=== PATIENT | male | born 1940 | race Caucasian/White ===

== ENCOUNTER → 2016-07-13 | Outpatient (CLI) | payer OTHER ==
[~2016-07-13] MED LIST: ALL300 PO; LISI-461 PO
[2016-07-13 12:31] LABS: CALCIUM 9.3 mg/dl (8.5-10.1)
[2016-07-13 12:37] LABS: AST/SGOT 22 U/L (15-37); BLOOD UREA NITROGEN 17 mg/dl (7-18); BUN/CREATININE RATIO 17.6 (10-20); CARBON DIOXIDE 28 mmol/L (21-32); CHLORIDE 105 mmol/L (98-107); CHOLESTEROL 213 mg/dl (0-200); CREATININE 0.99 mg/dl (0.60-1.40); GLUCOSE 121 mg/dl (70-99); POTASSIUM 4.6 mmol/L (3.5-5.1); SODIUM 139 mmol/L (136-145)
[2016-07-13 12:40] LABS: ALT/SGPT 40 U/L (12-78); CHOLESTEROL/HDL RATIO 5.3; HDL CHOLESTEROL 40 mg/dl; LDL CHOLESTEROL CALCULATED 136 mg/dl; TRIGLYCERIDES 184 mg/dl (0-150); VERY LOW DENSITY LIPOPROT CALC 37 mg/dl
== END | disposition home or self-care (01) ==
LOC: C.LABPVFM 08:24
PROVIDERS: ATTEND Family Medicine
DX: I10 Essential (primary) hypertension (principal); E78.5 Hyperlipidemia, unspecified

== ENCOUNTER → 2017-01-21 | Outpatient (CLI) | payer OTHER ==
[2017-01-21 13:20] LABS: BLOOD UREA NITROGEN 20 mg/dl (7-18); BUN/CREATININE RATIO 19.5 (10-20); CALCIUM 8.7 mg/dl (8.5-10.1); CARBON DIOXIDE 23 mmol/L (21-32); CHLORIDE 109 mmol/L (98-107); CREATININE 1.02 mg/dl (0.60-1.40); GLUCOSE 102 mg/dl (70-99); POTASSIUM 4.2 mmol/L (3.5-5.1); SODIUM 141 mmol/L (136-145)
[2017-01-21 13:38] LABS: ESTIMATED AVERAGE GLUCOSE 111 mg/dl; HA1C FLAG Normal (Normal)
== END | disposition home or self-care (01) ==
LOC: C.LABPVFM 07:31
PROVIDERS: ATTEND Family Medicine
DX: R79.9 Abnormal finding of blood chemistry, unspecified (principal); R73.09 Other abnormal glucose

== ENCOUNTER → 2017-11-01 | Outpatient (CLI) | payer OTHER ==
[~2017-11-01] MED LIST changes: -ALL300 PO; +ALLO300T2 PO; +BILB1CAP2 PO; +CRANPOW PO; +ESTER C PO; +IBUP-103 PO; +LUTE15CA PO; +MULT-506 PO; +OMEG10007 PO; +TIMOLOL OPB; +VITAMIN E PO
--- NOTE | 2017-11-01 12:43 | DIAGNOSTIC IMAGING REPORT ---
CHEST 2 VIEWS ROUTINE CLINICAL HISTORY: 77 years-old Male presenting with preoperative assessment. TECHNIQUE: PA and lateral views of the chest were obtained. COMPARISON: None. FINDINGS: Cardiomediastinal silhouette normal. Lungs and pleural spaces clear. Osseous structures normal. Upper abdomen normal. IMPRESSION: 1. No acute cardiopulmonary disease. Electronically signed by: Bandar Arrieta M.D. 11/01/2017 12:41 PM Dictated Date/Time: 11/01/2017 12:40 PM
--- NOTE | 2017-11-01 14:41 | HISTORY & PHYSICAL EXAMINATION ---
DATE OF ADMISSION: 11/01/2017 DATE OF SURGERY: 11/27/2017. PROCEDURE: Right total knee replacement. HISTORY OF PRESENT ILLNESS: Mehran is a pleasant 77-year-old male who presents today for preoperative evaluation prior to right knee replacement. Mehran has been having pain in his knee for many years now, which has gradually worsened, it is now affecting his daily activities including walking, standing, going up and down steps. He has tried previous oral anti-inflammatories, cortisone injection, viscosupplementation with no relief. At this point in time, he has failed conservative measures. Pain is now affecting his daily activities, would like to proceed with a right knee replacement. PAST MEDICAL HISTORY: 1. Hypertension. 2. Denies high cholesterol, diabetes. ALLERGIES: No known drug allergies. CURRENT MEDICATIONS: 1. Cranberry 420 mg daily. 2. Lisinopril 10 mg 3 tablets daily. 3. Allopurinol 300 mg 1 tablet daily. 4. Multivitamin. 5. Flaxseed oil. 6. Fish oil. 7. Vitamin D. 8. Vitamin E. PAST SURGICAL HISTORY: 1. Tonsillectomy. 2. Appendectomy. 3. Right arm ORIF x2 from an accident in 1995. FAMILY HISTORY: Noncontributory. SOCIAL HISTORY: He denies a history of smoking or tobacco use. No alcohol consumption. REVIEW OF SYSTEMS: Otherwise negative. Please see HPI for pertinent positives. PHYSICAL EXAMINATION: VITAL SIGNS: 5 feet 11 inches, 243 pounds. O2 sats 97% room air. Pulse 64. Blood pressure is 140/88. GENERAL: Well-developed, well-nourished 77-year-old male, in no acute distress, alert and oriented x3. HEENT: Normocephalic, atraumatic. CARDIAC: Regular rate and rhythm. No murmurs or gallops appreciated. Resting pulse 64 beats per minute. LUNGS: Clear to auscultation without rales or wheeze bilaterally. ABDOMEN: Soft, nontender. Bowel sounds present. EXTREMITIES: Right lower extremity is neurovascularly intact. Calves are soft and nontender. DP pulse +2. Demonstrates good quad tone. Straight leg raise without lag. No erythema or warmth. Has mild effusion. Positive crepitation with motion. Range of motion is 0/3/110. Knee is stable with valgus and varus stress. Calf is soft, nontender. IMAGING DATA: Reviewed of the right knee show findings consistent with degenerative joint disease including joint space narrowing, subchondral sclerosis, peripheral osteophytes noted. He has varus alignment. IMPRESSION: 1. Right knee degenerative joint disease. 2. Hypertension. PLAN: Further care discussed with Mehran. At this point in time, has failed conservative measures and would like to proceed with a right knee replacement at [facility] on 11/27/2017. Will place on aspirin 81 mg p.o. b.i.d. for a month postop. Would like to be discharged home with outpatient physical therapy.
[2017-11-01 14:43] LABS: BASO % 0.2 %; BASO ABS # 0.01 K/uL (0-0.2); HEMATOCRIT 42.8 % (42-52); HEMOGLOBIN 14.9 g/dL (14.0-18.0); IG# 0.02 K/uL (0.00-0.02); LYMPH % 34.4 %; LYMPH ABS # 2.29 K/uL (1.2-3.4); MEAN CELL VOLUME 93.9 fL (80-100); MEAN CORPUSCULAR HEMOGLOBIN 32.7 pg (25-34); MEAN CORPUSCULAR HGB CONC 34.8 g/dl (32-36); MEAN PLATELET VOLUME 10.3 fL (7.4-10.4); MONO % 6.5 %; MONO ABS # 0.43 K/uL (0.11-0.59); NEUT % 55.6 %; PLATELET COUNT 122 K/uL (130-400); RED CELL DISTRIBUTION WIDTH CV 13.2 % (11.5-14.5); RED CELL DISTRIBUTION WIDTH SD 45.3 fL (36.4-46.3); WHITE BLOOD COUNT 6.65 K/uL (4.8-10.8)
[2017-11-01 14:52] LABS: PTT PATIENT 26.6 SECONDS (21.0-31.0)
[2017-11-01 14:56] LABS: ALBUMIN 3.7 gm/dl (3.4-5.0); BLOOD UREA NITROGEN 17 mg/dl (7-18); CALCIUM 8.4 mg/dl (8.5-10.1); CARBON DIOXIDE 22 mmol/L (21-32); CREATININE 0.86 mg/dl (0.60-1.40); GLUCOSE 99 mg/dl (70-99); POTASSIUM 4.1 mmol/L (3.5-5.1); SODIUM 142 mmol/L (136-145)
[2017-11-02 06:48] LABS: HEMOGLOBIN A1C 5.8 % (4.5-5.6)
== END | disposition home or self-care (01) ==
LOC: C.CPL 13:06
PROVIDERS: ATTEND Orthopaedic Surgery
DX: Z01.810 Encounter for preprocedural cardiovascular examination (principal); Z01.811 Encounter for preprocedural respiratory examination; Z01.812 Encounter for preprocedural laboratory examination; R00.1 Bradycardia, unspecified

== ENCOUNTER 2024-05-01 19:14 | Inpatient (IN) ==
[2024-05-01] MEDS: OPTIRAY 320 125ml IV ONE (19:39)
[2024-05-01] MEDS ORDERED: No Aspirin within 24hrs of THROMBOLYTIC-Stroke PO SCH (19:45)
[2024-05-01 19:49] LABS: iSTAT Creatinine 1.2 mg/dl (0.6-1.3); iSTAT Ionized Calcium 1.14 mmol/l (1.12-1.32)
[2024-05-01 19:54] LABS: Basophils # (auto) 0.03 K/uL (0.00-0.20); Basophils % (auto) 0.4 %; Eosinophils # (auto) 0.28 K/uL (0.00-0.50); Eosinophils % (auto) 3.5 %; Hematocrit (blood only) 43.6 % (42.0-52.0); Immature Granulocytes # (auto) 0.02 K/uL (0.01-0.20); Immature Granulocytes % (auto) 0.2 %; Lymphocytes # (auto) 3.12 K/uL (1.20-3.40); Lymphocytes % (auto) 38.8 %; Mean Corpuscular Hemoglobin 31.4 pg (25.0-34.0); Mean Corpuscular Hgb Conc 34.4 g/dL (32.0-36.0); Mean Corpuscular Volume 91.2 fL (80.0-100.0); Mean Platelet Volume 9.6 fL (9.4-12.4); Monocytes # (auto) 0.74 K/uL (0.11-0.59); Monocytes % (auto) 9.2 %; Neutrophils # (auto) 3.86 K/uL (1.40-6.50); Neutrophils % (auto) 47.9 %; Platelet Count 145 K/uL (130-400); RDW Coefficient of Variation 13.1 % (11.5-14.5); RDW Standard Deviation 43.7 fL (36.4-46.3); Red Blood Count 4.78 M/uL (4.70-6.10); White Blood Count 8.05 K/ul (4.8-10.8)
[2024-05-01] MEDS: STAT IV/IM STA (19:54)
[2024-05-01] MEDS: TENECTEPLASE 25 MG in SYRINGE 0 ML IV ONE (19:56)
--- NOTE | 2024-05-01 19:57 | CT Scan Report ---
EXAMINATION: Head CT without CLINICAL HISTORY: Numbness, decreased control of left arm, trouble walking, fall 2 weeks ago PRIORS: [address] TECHNIQUE: Contiguous axial images were obtained through the head without the use of intravenous contrast. Sagittal and coronal reformations are supplied. FINDINGS: Appropriate parenchymal volume is noted. Trevizo-white differentiation is preserved. No edema or midline shift. Partial calcification of the falx. No intra-axial or extra-axial hemorrhage. Ventricles are normal in size and configuration. Brainstem and cerebellum have a normal appearance. Calvarium unremarkable. Paranasal sinuses and mastoid air cells are well-pneumatized. Globes are intact. No retrobulbar abnormality. IMPRESSION: No CT evidence of an acute intracranial abnormality. Electronically signed by Haylee Garay 05-01-2024 7:56 PM
[2024-05-01] MEDS: SODIUM CHLORIDE 0.9% 10ML FLUSH IV STA (19:58)
[2024-05-01 20:03] LABS: Albumin Globulin Ratio 1.5 (0.9-2); Albumin Level 4.3 gm/dl (3.4-5.0); Bilirubin,Total 0.5 mg/dl (0.2-1.0); Calcium 8.8 mg/dl (8.6-10.3); Creatinine Clr Calc Pharmacy 60.6 ml/min; Globulin 2.9 gm/dl (2.5-4.0); Potassium 4.1 mmol/L (3.5-5.1); Total Protein 7.2 gm/dl (6.0-8.3)
--- NOTE | 2024-05-01 20:05 | CT Scan Report ---
EXAM: CTA head with CLINICAL HISTORY: Numbness, decreased control left arm, fall TECHNIQUE: Contiguous CTA axial images were obtained through the head after the administration of intravenous contrast. Sagittal and coronal reformations are supplied. PRIORS: None FINDINGS: Dental amalgam creates significant beam hardening artifact. The vertebral arteries form the basilar artery at the skull base. [place] is patent. No thrombus or hemodynamically significant stenosis. No aneurysmal dilatation or bravo aneurysm. Mild atherosclerotic disease present in the No enhancing mass in the brain. Mild bilateral maxillary sinus mucosal thickening. IMPRESSION: No CTA evidence of an acute vascular abnormality. Electronically signed by Haylee Garay 05-01-2024 8:05 PM
--- NOTE | 2024-05-01 20:05 | CT Scan Report ---
EXAM: CT angio neck with con CLINICAL HISTORY: Numbness, decreased control left arm, fell 2 weeks ago TECHNIQUE: Contiguous CTA axial images were obtained through the neck with the administration of intravenous contrast. Sagittal and coronal reformations are supplied. MIPS are supplied. COMPARISON: None FINDINGS: A left-sided aortic arch is present. The right subclavian artery originates from the undersurface of the aortic arch, variant anatomy. Right: Moderate atherosclerotic disease present in the proximal internal carotid artery with approximately 50% stenosis. Carotid bulb unremarkable. The right internal carotid artery is normal in course and enters the petrous portion of the skull base normally. Left: Moderate atherosclerotic disease is present in the proximal internal carotid artery of 50% stenosis. The carotid bulb is unremarkable. The left internal carotid artery enters the petrous portion of the skull base normally. Vertebral arteries are patent. Left vertebral artery is dominant. Both vertebral arteries contribute to the basilar artery. IMPRESSION: Bilateral proximal internal carotid artery atherosclerosis with approximately 50% stenosis and no acute abnormality. Electronically signed by Haylee Garay 05-01-2024 8:05 PM
[2024-05-01 20:08] LABS: Troponin I High Sensitivity 4.1 pg/ml (0-20)
[2024-05-01 20:17] LABS: Partial Thromboplastin Time 28 Seconds (21-31); Prothrombin Time 10.6 Seconds (9.0-12.0)
--- NOTE | 2024-05-01 20:55 | History & Physical Report ---
Date of Service May 01, 2024 Assessment & Plan (1) Acute CVA (cerebrovascular accident): Plan: 84yo right handed male with history of HTN on Lisinopril presenting with acute onset of LUE numbness and weakness that started at 18:30. Patient presented as a CODE STROKE. Initial NIHSS=3 with limb ataxia present in LUE. He was administered Tenecteplase 25mg IV at 19:56. Has had continued improvement in his symptoms. MS in LUE 4/5 on my exam. Most recent neurologic exam reports 5/5 strength in LUE. -Admit to MICU for post TNK management and monitoring -MRI brain complete -Repeat CT brain in 24 hours -Check 2D echo -Check HgbA1C and Lipid panel -Labetalol PRN BP > 180/105 -PT/OT evaluations appreciated -Neuro consultation appreciated Plan HTN -Continue Lisinopril BPH -Continue Flomax History of Present Illness Chief Complaint: left arm numbness Primary Care Provider: Hafsa Hoffman MD Mehran Pierson is an 84yo right-hand dominant male with history of HTN presenting with LUE numbness/weakness. Patient had been in his usual state of health until this afternoon while he was siting and relaxing and developed acute onset LUE numbness/tingling and weakness at 18:30. 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 No additional complaints. Specifically denies numbness/tingling of LLE, face, visual changes or speech issue. No report of fever, chills, chest pain, cough or shortness of breath. Patient presented as a CODE STROKE. He was administered Tenectplase 25mg at 19:56. He reports progressive improvement in his LUE numbness and weakness. Still not at baseline but improving. No additional complaints - no headache, visual changes. ER Course: Tenectplase 25mg IV Allergies Allergy/AdvReac Type Severity Reaction Status Date / Time Penicillins Allergy Mild HIVES, RASH Verified 04/10/24 08:27 ciprofloxacin AdvReac BLLE Verified 04/10/24 08:27 edema, pain and tingling Home Medications Medication Instructions Recorded Confirmed Type ascorbic acid (vitamin C) 1,000 mg 1 tab PO QAM ##0 10/28/17 04/10/24 History tablet (Vitamin C) vitamin E 268 mg (400 unit) capsule 1 dose PO QAM ##0 10/28/17 04/10/24 History multivitamin 1 tab PO QAM 09/04/18 04/10/24 History latanoprostene bunod 0.024 % eye 1 drp ophthalmic (eye) DAILY 02/13/21 04/10/24 History drops (Vyzulta) netarsudil 0.02 % eye drops 1 drp ophthalmic (eye) QPM 11/12/22 04/10/24 History (Rhopressa) oxybutynin chloride 5 mg tablet 5 mg PO Q8H PRN bladder spasms #30 05/31/23 04/10/24 Rx tabs tamsulosin 0.4 mg capsule 0.4 mg PO DAILY #90 caps 07/17/23 04/10/24 Rx lisinopril 10 mg tablet 10 mg PO QAM #90 tabs 03/09/24 04/10/24 Rx Past Med/Surg History Problem List Stroke-like symptoms Acute CVA (cerebrovascular accident) (Acute) Flu-like symptoms Fall Mass of right axilla Breast lump on right side at 9 o'clock position Urinary urgency Dysuria Encounter for pre-operative examination Total knee replacement status Abnormal glucose (Chronic) Abnormal blood chemistry (Acute) Hyperlipidemia (Chronic) Glaucoma (Chronic) Gout (Chronic) Routine health maintenance (Chronic) Murmur, cardiac (Chronic) Pre-syncope Fatigue Weight loss Hoarse voice quality First degree atrioventricular block by electrocardiogram Abnormal electrocardiogram Hematuria Bladder cancer Actinic keratosis (Acute) Benign essential hypertension (Chronic) BPH (benign prostatic hyperplasia) (Acute) HTN (hypertension) (Chronic) Medical History Bladder cancer recently dx History of nephrolithiasis Skin cancer Glaucoma Gout hx Osteoarthritis 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 hx Surgical History History of cystoscopy Transurethral Resection of Bladder Tumor 02/21/21 [place] History of knee replacement History of arthroscopy of knee History of eye surgery Status post re-excision of malignant skin lesion History of anesthesia reaction WOKE UP DURING ORIF #1 AND SLOW TO WAKE ORIF #2 History of open reduction and internal fixation (ORIF) procedure R ARM X 2 Hx of appendectomy Hx of colonoscopy Hx of tonsillectomy Family History Other No pertinent family history Denies family history of Ovarian cancer Prostate cancer Myocardial infarction Breast cancer Colorectal cancer Social History Smoking Status: Never smoker Second Hand Exposure: No; Do You Dip or Chew Tobacco: No; Hx Alcohol Use: Yes Alcohol type: beer Hx Substance Use: No Preferred Language: Yoruba Communication Ability: Effective Visual Impairment: No Limitations Hearing Ability: Normal Real Estate Sales Supervisor Required: No Beliefs That Will Affect Care: None marital status: Current Living Situation: Spouse current occupational status: retired How many Children do You have: 1 How many Children do You have Comment: SON Feels Safe at Home: Yes Safety Concerns: Feels Safe At This Time Childhood Exposure to Second-Hand Smoke: Yes Diet: regular caffeine: Yes during the past year weight has: remained stable Dental Care, Regularly: Yes Physical Activity Frequency: 5-6 Times per Week Seatbelt Use: always Sunscreen Use: Yes Assistive Devices: Glasses Assistive Devices Comment: reading glasses, partial plate Review of Systems Review of Systems: All systems reviewed & are unremarkable except as noted in HPI & below Physical Exam Physical Exam: General: patient resting comfortably, NAD, non-toxic in appearance, AA&O x 4 Skin: warm, dry, intact, no rashes or lesions HEENT: NC/AT, PERRL, EOMI, anicteric sclera, conjunctiva without injection, external ear normal to inspection and nontender, nares patent, moist mucus membranes, dentition intact, no oropharyngeal lesions, neck supple, trachea midline, no LAD, no thyromegaly, no JVD Heart: +S1/S2, regular, no m/r/g Lungs: equal air entry bilaterally, no rales/rhonchi/wheezes Abd: +BS, soft, NT/ND, no masses/organomegaly/ascites Ext: warm, 2+ pulses in UE/LE bilaterally, no clubbing/cyanosis or edema Neuro: AA&O x 4, speech appropriate and fluent, no facial droop, CN II - XII grossly intact, sensation to light touch intact in UE/LE bilaterally, MS in LUE 4/5, RUE, RLL/LLL 5/5, mild dysmetria noted with finger to nose when using left hand, gait not assessed Results & Data Results & Data Vital Signs (Past 12 Hours) Vital Signs Temp Pulse Pulse Resp BP BP Pulse Ox 05/01/24 20:42 36.8 C 61 18 134/83 96 05/01/24 20:26 36.8 C 59 L 16 130/78 96 05/01/24 20:11 36.8 C 62 25 H 127/79 95 05/01/24 19:30 67 15 159/90 H 96 05/01/24 19:29 72 05/01/24 19:17 36.4 C L 72 20 148/83 H 96 O2 Del Method 05/01/24 20:42 Room Air 05/01/24 20:26 Room Air 05/01/24 20:11 Room Air 05/01/24 19:30 Room Air 05/01/24 19:29 05/01/24 19:17 Room Air Laboratory Results Laboratory Results WBC 8.05 K/ul (4.8-10.8) 05/01/24 19:31 RBC 4.78 M/uL (4.70-6.10) 05/01/24 19:31 Hgb 15.0 g/dl (14.0-18.0) 05/01/24 19:31 POC Hgb 15.0 g/dl (14.0-18.0) 05/01/24 19:38 Hct 43.6 % (42.0-52.0) 05/01/24 19: POC Hct 44 % (42-52) 05/01/24 19:38 MCV 91.2 fL (80.0-100.0) 05/01/24 19: MCH 31.4 pg (25.0-34.0) 05/01/24 19: MCHC 34.4 g/dL (32.0-36.0) 05/01/24 19:31 RDW Std Deviation 43.7 fL (36.4-46.3) 05/01/24 19: RDW Coeff of Oskar 13.1 % (11.5-14.5) 05/01/24 19: Plt Count 145 K/uL (130-400) 05/01/24 19: MPV 9.6 fL (9.4-12.4) 05/01/24: Immature Gran % (Auto) 0.2 % 05/01/24 19: Neut % (Auto) 47.9 % 05/01/24: Lymph % (Auto) 38.8 % 05/01/24: [place] % (Auto) 9.2 % 05/01/24: Eos % (Auto) 3.5 % 05/01/24: Baso % (Auto) 0.4 % 05/01/24: Neut # (Auto) 3.86 K/uL (1.40-6.50) 05/01/24: Lymph # (Auto) 3.12 K/uL (1.20-3.40) 05/01/24: [place] # (Auto) 0.74 K/uL (0.11-0.59) H 05/01/24: Eos # (Auto) 0.28 K/uL (0.00-0.50) 05/01/24: Baso # (Auto) 0.03 K/uL (0.00-0.20) 05/01/24: Immature Gran # (Auto) 0.02 K/uL (0.01-0.20) 05/01/24: PT 10.6 Seconds (9.0-12.0) 05/01/24: INR 1.0 (0.9-1.1) 05/01/24: APTT 28 Seconds (21-31) 05/01/24: PTT Ratio 1.0 05/01/24: POC Sodium 144 mmol/L (135-144) 05/01/24 19: Sodium 143 mmol/L (136-145) 05/01/24: POC Potassium 4.0 mmol/L (3.3-5.0) 05/01/24 19: Potassium 4.1 mmol/L (3.5-5.1) 05/01/24 19: POC Chloride 109 mmol/L (101-112) 05/01/24 19: Chloride 110 mmol/L (98-107) H 05/01/24 19:31 Carbon Dioxide 24 mmol/L (21-32) 05/01/24 19:31 POC Total CO2 22 mmol/L (24-31) L 05/01/24 19:38 Anion Gap 9 (3-11) 05/01/24 19:31 POC Anion Gap 18.0 mmol/L (16-25) 05/01/24 19:38 POC BUN 20 mg/dl (7-18) H 05/01/24 19:38 BUN 20 mg/dl (6-23) 05/01/24 19:31 Creatinine 1.11 mg/dl (0.6-1.4) 05/01/24 19:31 POC Creatinine 1.2 mg/dl (0.6-1.3) 05/01/24 19:38 Est Cr Clr Drug Dosing 60.6 ml/min 05/01/24 19:31 eGFR 65.07 05/01/24 19:31 BUN/Creatinine Ratio 18.0 (10-20) 05/01/24 19:31 Glucose 109 mg/dl (70-99(Fasting)) H 05/01/24 19:31 POC Glucose (other) 112 mg/dl (70-99) H 05/01/24 19:38 Calcium 8.8 mg/dl (8.6-10.3) 05/01/24 19:31 POC Ioniz Calcium [place] 1.14 mmol/l (1.12-1.32) 05/01/24 19:38 Magnesium 2.0 mg/dl (1.7-2.4) 05/01/24 19:31 Total Bilirubin 0.5 mg/dl (0.2-1.0) 05/01/24 19:31 AST 17 U/L (13-39) 05/01/24 19:31 ALT 19 U/L (7-52) 05/01/24 19:31 Alkaline Phosphatase 99 U/L (34-104) 05/01/24 19:31 Troponin I High Sens 4.1 pg/ml (0-20) 05/01/24 19:31 Total Protein 7.2 gm/dl (6.0-8.3) 05/01/24 19:31 Albumin 4.3 gm/dl (3.4-5.0) 05/01/24 19:31 Globulin 2.9 gm/dl (2.5-4.0) 05/01/24 19:31 Albumin/Globulin Ratio 1.5 (0.9-2) 05/01/24 19:31 Nasal Screen MRSA (PCR) Negative (Negative) 05/01/24 Unknown Blood Type B Positive 05/01/24 19:31 Antibody Screen NEGATIVE 05/01/24 19:31 Impressions Chest X-Ray 05/01/24 19:25 Exam(s): XR CXR 1 VIEW EXAM: XR Chest, 1 View CLINICAL HISTORY: Reason for exam: neuro deficit, acute stroke suspected. TECHNIQUE: Frontal view of the chest. COMPARISON: 02/10/2021 FINDINGS: Lungs: No consolidation. No overt edema. Pleural space: No pleural effusion. No pneumothorax. Heart: Unremarkable. No cardiomegaly. IMPRESSION: No acute cardiopulmonary abnormality. Electronically signed by: Jhony Martino MD 05/01/24 23:[address] 05/01/24 19:25 EXAMINATION: Head CT without CLINICAL HISTORY: Numbness, decreased control of left arm, trouble walking, fall 2 weeks ago PRIORS: [address] TECHNIQUE: Contiguous axial images were obtained through the head without the use of intravenous contrast. Sagittal and coronal reformations are supplied. FINDINGS: Appropriate parenchymal volume is noted. [place]-white differentiation is preserved. No edema or midline shift. Partial calcification of the falx. No intra-axial or extra-axial hemorrhage. Ventricles are normal in size and configuration. Brainstem and cerebellum have a normal appearance. Calvarium unremarkable. Paranasal sinuses and mastoid air cells are well-pneumatized. Globes are intact. No retrobulbar abnormality. IMPRESSION: No CT evidence of an acute intracranial abnormality. Electronically signed by Haylee Garay 05-01-2024 7:56 PM Head CTA 05/01/24 19:25 EXAM: CTA head with CLINICAL HISTORY: Numbness, decreased control left arm, fall TECHNIQUE: Contiguous CTA axial images were obtained through the head after the administration of intravenous contrast. Sagittal and coronal reformations are supplied. PRIORS: None FINDINGS: Dental amalgam creates significant beam hardening artifact. The vertebral arteries form the basilar artery at the skull base. [place] is patent. No thrombus or hemodynamically significant stenosis. No aneurysmal dilatation or bravo aneurysm. Mild atherosclerotic disease present in the No enhancing mass in the brain. Mild bilateral maxillary sinus mucosal thickening. IMPRESSION: No CTA evidence of an acute vascular abnormality. Electronically signed by Haylee Garay 05-01-2024 8:05 PM Neck CTA 05/01/24 19:25 EXAM: CT angio neck with con CLINICAL HISTORY: Numbness, decreased control left arm, fell 2 weeks ago TECHNIQUE: Contiguous CTA axial images were obtained through the neck with the administration of intravenous contrast. Sagittal and coronal reformations are supplied. MIPS are supplied. COMPARISON: None FINDINGS: A left-sided aortic arch is present. The right subclavian artery originates from the undersurface of the aortic arch, variant anatomy. Right: Moderate atherosclerotic disease present in the proximal internal carotid artery with approximately 50% stenosis. Carotid bulb unremarkable. The right internal carotid artery is normal in course and enters the petrous portion of the skull base normally. Left: Moderate atherosclerotic disease is present in the proximal internal carotid artery of 50% stenosis. The carotid bulb is unremarkable. The left internal carotid artery enters the petrous portion of the skull base normally. Vertebral arteries are patent. Left vertebral artery is dominant. Both vertebral arteries contribute to the basilar artery. IMPRESSION: Bilateral proximal internal carotid artery atherosclerosis with approximately 50% stenosis and no acute abnormality. Electronically signed by Haylee Garay 05-01-2024 8:05 PM Brain MRI 05/01/24 21:05 Exam(s): MRI HEAD Without Contrast EXAM: MR Head Without Intravenous Contrast CLINICAL HISTORY: Reason for exam: Stroke-like symptoms s/p TNK. TECHNIQUE: Magnetic resonance images of the head/brain without intravenous contrast in multiple planes. COMPARISON: No relevant prior studies available. FINDINGS: Brain: Small amount of restricted diffusion along the cortex of the posterior right frontal lobe. No mass-effect. No hemorrhage. Global parenchymal atrophy. Ventricles: Unremarkable. No ventriculomegaly. Bones/joints: Unremarkable. No acute fracture. Sinuses: Fluid in the right maxillary sinus. Left maxillary sinus mucosal thickening. Mastoid air cells: Unremarkable as visualized. No mastoid effusion. Orbits: Unremarkable as visualized. IMPRESSION: Small amount of restricted diffusion along the cortex of the posterior right frontal lobe consistent with acute infarct.. Electronically signed by: Jhony Martino MD 05/01/24 23:53 PM ECG Additional Comments: EKG per my interpretation with SR at 61bpm, left axis, XQ=851, QRS=94, JSr=398, no acute ischemic changes Code Status & VTE Plan VTE Prophylaxis Plan VTE Prophylaxis will be ordered: Yes PG Care Time/CCT Total # of Minutes Spent Total Time Spent with Patient: Total time spent is greater than 50% in coordination of care (as documented) at patient's floor/unit and/or counseling patient: Coding Level of Care Code 38554 INT INP/OBS CARE 3/75MIN Diagnoses Acute CVA (cerebrovascular accident) I63.9
[2024-05-01] MEDS ORDERED: GLUCOSE 10 TAB/TUBE PO PRN (21:02)
[2024-05-01] MEDS ORDERED: CARBOHYDRATES FOR HYPOGLYCEMIA PO PRN (21:02)
[2024-05-01] MEDS ORDERED: GLUCOSE 40% GEL 15 GM TUBE PO PRN (21:02)
[2024-05-01] MEDS ORDERED: DEXTROSE 50% 50 ML SYRINGE IV PRN (21:02)
[2024-05-01] MEDS ORDERED: GLUCAGON FOR INJ 1 MG VIAL SQ PRN (21:02)
--- NOTE | 2024-05-01 21:04 | Emergency Department Note ---
History of Present Illness General Chief complaint: Stroke Alert Stated complaint: LT ARM NUMB, DIZZY Time Seen by Provider: 05/01/24 19:24 History of Present Illness Provider complaint: Left arm weakness Onset (ago): hour(s) 1 84-year-old male presents emergency department for left arm weakness. Patient states 1 hour ago he was watching TV and then noticed he could not move his left arm properly. No falls or traumas. No blood thinners. No headache. Patient [place] any history of cerebral tumors or intracerebral hemorrhage. No GI bleeding. Home Medications Medication Instructions Recorded Confirmed Type ascorbic acid (vitamin C) 1,000 mg 1 tab PO QAM ##0 10/28/17 04/10/24 History tablet (Vitamin C) vitamin E 268 mg (400 unit) capsule 1 dose PO QAM ##0 10/28/17 04/10/24 History multivitamin 1 tab PO QAM 09/04/18 04/10/24 History latanoprostene bunod 0.024 % eye 1 drp ophthalmic (eye) DAILY 02/13/21 04/10/24 History drops (Vyzulta) netarsudil 0.02 % eye drops 1 drp ophthalmic (eye) QPM 11/12/22 04/10/24 History (Rhopressa) oxybutynin chloride 5 mg tablet 5 mg PO Q8H PRN bladder spasms #30 05/31/23 04/10/24 Rx tabs tamsulosin 0.4 mg capsule 0.4 mg PO DAILY #90 caps 07/17/23 04/10/24 Rx lisinopril 10 mg tablet 10 mg PO QAM #90 tabs 03/09/24 04/10/24 Rx Allergies Allergy/AdvReac Type Severity Reaction Status Date / Time Penicillins Allergy Mild HIVES, RASH Verified 04/10/24 08:27 ciprofloxacin AdvReac BLLE Verified 04/10/24 08:27 edema, pain and tingling Past Med/Surg History Problem List (Updated 05/01/24 @ 21:19 by Mario Ross MD) Acute CVA (cerebrovascular accident) (Acute) Flu-like symptoms Fall Mass of right axilla Breast lump on right side at 9 o'clock position Urinary urgency Dysuria Encounter for pre-operative examination Total knee replacement status Abnormal glucose (Chronic) Abnormal blood chemistry (Acute) Hyperlipidemia (Chronic) Glaucoma (Chronic) Gout (Chronic) Routine health maintenance (Chronic) Murmur, cardiac (Chronic) Pre-syncope Fatigue Weight loss Hoarse voice quality First degree atrioventricular block by electrocardiogram Abnormal electrocardiogram Hematuria Bladder cancer Actinic keratosis (Acute) Benign essential hypertension (Chronic) BPH (benign prostatic hyperplasia) (Acute) HTN (hypertension) (Chronic) Medical History Bladder cancer History of nephrolithiasis Skin cancer Glaucoma Gout Osteoarthritis 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 Surgical History History of cystoscopy History of knee replacement History of arthroscopy of knee History of eye surgery Status post re-excision of malignant skin lesion History of anesthesia reaction History of open reduction and internal fixation (ORIF) procedure Hx of appendectomy Hx of colonoscopy Hx of tonsillectomy Family History Other No pertinent family history Denies family history of Ovarian cancer Prostate cancer Myocardial infarction Breast cancer Colorectal cancer Social History Smoking Status: Never smoker Second Hand Exposure: No; Do You Dip or Chew Tobacco: No; Hx Alcohol Use: Yes Alcohol type: beer Hx Substance Use: No Preferred Language: Romanian Communication Ability: Effective Visual Impairment: No Limitations Hearing Ability: Normal Insurance Solicitor Required: No Beliefs That Will Affect Care: None marital status: Current Living Situation: Spouse current occupational status: retired How many Children do You have: 1 How many Children do You have Comment: SON Feels Safe at Home: Yes Safety Concerns: Feels Safe At This Time Childhood Exposure to Second-Hand Smoke: Yes Diet: regular caffeine: Yes during the past year weight has: remained stable Dental Care, Regularly: Yes Physical Activity Frequency: 5-6 Times per Week Seatbelt Use: always Sunscreen Use: Yes Assistive Devices: Glasses Assistive Devices Comment: reading glasses, partial plate Physical Exam Vital Signs Vital Signs - 24 hr 05/01/24 19:17 05/01/24 19:29 05/01/24 19:30 Temperature 36.4 C L Temperature Source Oral Pulse Rate 72 72 Pulse Rate [Apical] 67 Pulse Rhythm [Apical] Regular Pulse Strength [Apical] Normal Respiratory Rate 20 15 Respiratory Effort / Characteristics Non-Labored Non-Labored Respiratory Depth Normal Normal Respiratory Pattern Regular Blood Pressure 148/83 H Blood Pressure [Right Arm] 159/90 H Blood Pressure Mean 104 Blood Pressure Mean [Right Arm] 113 Blood Pressure Position [Right Arm] Pulse Oximetry 96 96 Oxygen Delivery Method Room Air Room Air Sepsis Recent Fever Within 48 Hours No Sepsis New/Unexplained Change in Mental Status Yes Sepsis Action Taken by Nursing No Action Required 05/01/24 20:11 05/01/24 20:26 05/01/24 20:42 Temperature 36.8 C 36.8 C 36.8 C Temperature Source Oral Oral Oral Pulse Rate Pulse Rate [Apical] 62 59 L 61 Pulse Rhythm [Apical] Pulse Strength [Apical] Respiratory Rate 25 H 16 18 Respiratory Effort / Characteristics Non-Labored Non-Labored Respiratory Depth Normal Normal Respiratory Pattern Blood Pressure Blood Pressure [Right Arm] 127/79 130/78 134/83 Blood Pressure Mean Blood Pressure Mean [Right Arm] 95 95 100 Blood Pressure Position [Right Arm] Lying Lying Lying Pulse Oximetry 95 96 96 Oxygen Delivery Method Room Air Room Air Room Air Sepsis Recent Fever Within 48 Hours Sepsis New/Unexplained Change in Mental Status Sepsis Action Taken by Nursing 05/01/24 20:59 Temperature 36.8 C Temperature Source Oral Pulse Rate Pulse Rate [Apical] 57 L Pulse Rhythm [Apical] Pulse Strength [Apical] Respiratory Rate 16 Respiratory Effort / Characteristics Respiratory Depth Normal Respiratory Pattern Blood Pressure Blood Pressure [Right Arm] 123/82 Blood Pressure Mean Blood Pressure Mean [Right Arm] 95 Blood Pressure Position [Right Arm] Pulse Oximetry 95 Oxygen Delivery Method Sepsis Recent Fever Within 48 Hours Sepsis New/Unexplained Change in Mental Status Sepsis Action Taken by Nursing Physical Exam HENT: Exam performed. - Head: Normocephalic and atraumatic. EYES: Conjunctivae and EOM are normal. Right eye exhibits no discharge. Left eye exhibits no discharge. No scleral icterus. NECK: Normal range of motion. Neck supple. No JVD present. CV: Normal rate, regular rhythm, normal heart sounds and intact distal pulses. There is no peripheral edema. Palpable radial pulses bue. PULM/CHEST: Effort normal and breath sounds normal. No respiratory distress. No stridor. no wheezes. no rales. NEURO: NIHSS 3 (4:1, 5a:1, 7:1) Course Course 1923: The patient was evaluated in room B1. A complete history and physical exam was performed Cardiac monitoring: An order was placed for continuous cardiac monitoring. The monitor shows a rate of 60 with sinus rhythm interpreted by 1937: CT of the head viewed by shows no ICH. 1955: Latasha telestroke neurologist on video conference. He reviewed the scans and agrees patient can receive TNK. TNK pushed. Patient will be admitted to the medicine service to the ICU. 2046: On reassessment patient has good strength bilateral upper and lower extremities. Facial droop resolved. NIH stroke scale improved to 1. Administered Medications Discontinued Medications Tenecteplase 25 mg/ Syringe 5 mls @ 60 mls/min IV NOW ONE; Protocol Stop: 05/01/24 19:56 Last Admin: 05/01/24 19:56 Dose: 60 mls/min Documented By: LIZZETH Co-signed By: IZABELA Ioversol (Optiray 320 125ml) 115 ml IV ONCE ONE Stop: 05/01/24 19:37 Last Admin: 05/01/24 19:39 Dose: 115 ml Documented By: JENIFER Miscellaneous (Stat Iv/Im) 1 each N/A NOW STA Stop: 05/01/24 19:46 Last Admin: 05/01/24 19:54 Dose: 1 each Documented By: LIZZETH Sodium Chloride (Sodium Chloride 0.9% 10ml Flush) 20 ml IV NOW STA Stop: 05/01/24 19:46 Last Admin: 05/01/24 19:58 Dose: 20 ml Documented By: LIZZETH Critical Care Time Critical Care Time: Yes Total Critical Care Time: 37 I have personally spent greater than 37 minutes of critical care time in the direct management of this patient. This includes bedside care, interpretation of diagnostic studies, and testing, discussion with consultants, patient, and family members, and other required patient management activities. This 37 minutes is in excess of all separately billable procedures. Medical Decision Making Laboratory Data Attestation: I reviewed the patient's lab results. 05/01/24 19:31 05/01/24 19:31 Lab Results 05/01/24 05/01/24 Range/Units 19:31 19:38 WBC 8.05 (4.8-10.8) K/ul RBC 4.78 (4.70-6.10) M/uL Hgb 15.0 (14.0-18.0) g/dl POC Hgb 15.0 (14.0-18.0) g/dl Hct 43.6 (42.0-52.0) % POC Hct 44 (42-52) % MCV 91.2 (80.0-100.0) fL MCH 31.4 (25.0-34.0) pg MCHC 34.4 (32.0-36.0) g/dL RDW Std Deviation 43.7 (36.4-46.3) fL RDW Coeff of Oskar 13.1 (11.5-14.5) % Plt Count 145 (130-400) K/uL MPV 9.6 (9.4-12.4) fL Immature Gran % (Auto) 0.2 % Neut % (Auto) 47.9 % Lymph % (Auto) 38.8 % Bonner % (Auto) 9.2 % Eos % (Auto) 3.5 % Baso % (Auto) 0.4 % Neut # (Auto) 3.86 (1.40-6.50) K/uL Lymph # (Auto) 3.12 (1.20-3.40) K/uL Bonner # (Auto) 0.74 H (0.11-0.59) K/uL Eos # (Auto) 0.28 (0.00-0.50) K/uL Baso # (Auto) 0.03 (0.00-0.20) K/uL Immature Gran # (Auto) 0.02 (0.01-0.20) K/uL PT 10.6 (9.0-12.0) Seconds INR 1.0 (0.9-1.1) APTT 28 (21-31) Seconds PTT Ratio 1.0 POC Sodium 144 (135-144) mmol/L Sodium 143 (136-145) mmol/L POC Potassium 4.0 (3.3-5.0) mmol/L Potassium 4.1 (3.5-5.1) mmol/L POC Chloride 109 (101-112) mmol/L Chloride 110 H (98-107) mmol/L Carbon Dioxide 24 (21-32) mmol/L POC Total CO2 22 L (24-31) mmol/L Anion Gap 9 (3-11) POC Anion Gap 18.0 (16-25) mmol/L POC BUN 20 H (7-18) mg/dl BUN 20 (6-23) mg/dl Creatinine 1.11 (0.6-1.4) mg/dl POC Creatinine 1.2 (0.6-1.3) mg/dl Est Cr Clr Drug Dosing 60.6 ml/min eGFR 65.07 BUN/Creatinine Ratio 18.0 (10-20) Glucose 109 H (70-99(Fasting)) mg/dl POC Glucose (other) 112 H (70-99) mg/dl Calcium 8.8 (8.6-10.3) mg/dl POC Ioniz Calcium Maddison 1.14 (1.12-1.32) mmol/l Magnesium 2.0 (1.7-2.4) mg/dl Total Bilirubin 0.5 (0.2-1.0) mg/dl AST 17 (13-39) U/L ALT 19 (7-52) U/L Alkaline Phosphatase 99 (34-104) U/L Troponin I High Sens 4.1 (0-20) pg/ml Total Protein 7.2 (6.0-8.3) gm/dl Albumin 4.3 (3.4-5.0) gm/dl Globulin 2.9 (2.5-4.0) gm/dl Albumin/Globulin Ratio 1.5 (0.9-2) Blood Type B Positive Antibody Screen NEGATIVE Imaging Data Attestation: I personally reviewed and interpreted this imaging study as follows: My Impression: CT of the head viewed by me shows no ICH. Chest x-ray: Chest x-ray negative. Airway clear. No pneumothorax. No consolidation. No cardiomegaly or cephalization.. No free air under the diaphragm. No fractures of the skeletal structures. Radiologist's Impression: Head CT 05/01/24 19:25 EXAMINATION: Head CT without CLINICAL HISTORY: Numbness, decreased control of left arm, trouble walking, fall 2 weeks ago PRIORS: [address] TECHNIQUE: Contiguous axial images were obtained through the head without the use of intravenous contrast. Sagittal and coronal reformations are supplied. FINDINGS: Appropriate parenchymal volume is noted. Trevizo-white differentiation is preserved. No edema or midline shift. Partial calcification of the falx. No intra-axial or extra-axial hemorrhage. Ventricles are normal in size and configuration. Brainstem and cerebellum have a normal appearance. Calvarium unremarkable. Paranasal sinuses and mastoid air cells are well-pneumatized. Globes are intact. No retrobulbar abnormality. IMPRESSION: No CT evidence of an acute intracranial abnormality. Electronically signed by Haylee Garay 05-01-2024 7:56 PM Head CTA 05/01/24 19:25 EXAM: CTA head with CLINICAL HISTORY: Numbness, decreased control left arm, fall TECHNIQUE: Contiguous CTA axial images were obtained through the head after the administration of intravenous contrast. Sagittal and coronal reformations are supplied. PRIORS: None FINDINGS: Dental amalgam creates significant beam hardening artifact. The vertebral arteries form the basilar artery at the skull base. [place] of [place] is patent. No thrombus or hemodynamically significant stenosis. No aneurysmal dilatation or bravo aneurysm. Mild atherosclerotic disease present in the No enhancing mass in the brain. Mild bilateral maxillary sinus mucosal thickening. IMPRESSION: No CTA evidence of an acute vascular abnormality. Electronically signed by Haylee Garay 05-01-2024 8:05 PM Neck CTA 05/01/24 19:25 EXAM: CT angio neck with con CLINICAL HISTORY: Numbness, decreased control left arm, fell 2 weeks ago TECHNIQUE: Contiguous CTA axial images were obtained through the neck with the administration of intravenous contrast. Sagittal and coronal reformations are supplied. MIPS are supplied. COMPARISON: None FINDINGS: A left-sided aortic arch is present. The right subclavian artery originates from the undersurface of the aortic arch, variant anatomy. Right: Moderate atherosclerotic disease present in the proximal internal carotid artery with approximately 50% stenosis. Carotid bulb unremarkable. The right internal carotid artery is normal in course and enters the petrous portion of the skull base normally. Left: Moderate atherosclerotic disease is present in the proximal internal carotid artery of 50% stenosis. The carotid bulb is unremarkable. The left internal carotid artery enters the petrous portion of the skull base normally. Vertebral arteries are patent. Left vertebral artery is dominant. Both vertebral arteries contribute to the basilar artery. IMPRESSION: Bilateral proximal internal carotid artery atherosclerosis with approximately 50% stenosis and no acute abnormality. Electronically signed by Haylee Garay 05-01-2024 8:05 PM ECG Data Attestation: I personally reviewed and interpreted this ECG as follows: Rate (beats per minute): 61 Rhythm: + normal sinus ECG Intervals/blocks: + First degree AV block, + Normal QRS and + Normal QT-c ECG ST segments: + Normal ST segments [facility] Narrative 1923: The patient was evaluated in room B1. A complete history and physical exam was performed Cardiac monitoring: An order was placed for continuous cardiac monitoring. The monitor shows a rate of 60 with sinus rhythm interpreted by me 1937: CT of the head viewed by me shows no ICH. 1955: Latasha telestroke neurologist on video conference. He reviewed the scans and agrees patient can receive TNK. TNK pushed. Patient will be admitted to the medicine service to the ICU. 2046: On reassessment patient has good strength bilateral upper and lower extremities. Facial droop resolved. NIH stroke scale improved to 1. Impression & Plan Acute CVA (cerebrovascular accident) Discharge Plan Visit Data Chief Complaint: Stroke Alert Stated Complaint: LT ARM NUMB, DIZZY ED Provider: Mario Ross Discharge Problem: Acute CVA (cerebrovascular accident) Patient Disposition: Admitted As Inpatient Discharge Instructions Interventions: ED Discharge Assessment Last Done: 05/01/24 21:01 Forms Stand Alone Forms: [facility] [place] JDCPhosphate Prescriptions Prescriptions: No Action vitamin E 400 unit Capsule 1 dose PO QAM Qty: 0 Rx Instructions: UNKNOWN DOSE ascorbic acid (vitamin C) [Vitamin C] 1,000 mg Tablet 1 tab PO QAM Qty: 0 oxybutynin chloride 5 mg tablet 5 mg PO Q8H PRN (Reason: bladder spasms) Qty: 30 0RF lisinopril 10 mg tablet 10 mg PO QAM Qty: 90 1RF Rx Instructions: TAKE 1 TABLET BY MOUTH ONCE DAILY. multivitamin tablet 1 tab PO QAM Rhopressa 0.02 % drops 1 drp ophthalmic (eye) QPM tamsulosin 0.4 mg capsule 0.4 mg PO DAILY Qty: 90 3RF Vyzulta 0.024 % Drops 1 drp OPHTHALMIC (EYE) DAILY Referrals Referrals: Hafsa Hoffman MD [Primary Care Provider] -
[2024-05-01] MEDS ORDERED: PHARMACIST DISCHARGE MED REC CONSULT PRN ×2 (21:05→21:22)
[2024-05-01] MEDS ORDERED: LABETALOL HCL IV 5 MG/ML 20ML IV PRN (21:22)
[2024-05-01] MEDS ORDERED: No Aspirin within 24hrs of THROMBOLYTIC-Stroke SCH (21:30)
[2024-05-01] MEDS: ICU Protocol for HYPERglycemia SCH (21:42)
--- NOTE | 2024-05-01 21:54 | Critical Care Consultation ---
Date of Consultation May 01, 2024 Assessment & Plan (1) Stroke-like symptoms: (2) Acute CVA (cerebrovascular accident): Plan Reason Critically Ill: CVA Neuro - [facility] ICU: Negative RASS GOAL 0 CTA shows moderate carotid stenosis, no LVO Q1H neurologic checks per protocol Symptoms resolved s/p TNK MRI pending Repeat CTH at 24 hours post-TNK or sooner if neurologic change Lipid panel, A1c pending BP < 180/105, Hydralazine PRN. Avoid BB Cardiac - No acute conerns MAP goal > 65mmHg TTE with bubble study pending Continue ACEI in AM Respiratory - No acute concerns SpO2 > 92% IS/Flutter GI - Diet: Advance LINDSEY pending dysphagia screen SUP: N/A Bowel regimen: Miralax PRN RENAL/LYTES - Replete electrolytes as indicated Bladder scan PRN. Avoid straight cath x24 hours Maintain net even to net negative [employer]FTING [employer]ER Tamsulosin ENDO - BG 140-180 per [facility] ISS if needed while inpatient HEME/ONC/OTHER - S/p TNK [employer]ING [employer]ER eyedrops ID - No acute concerns LINES/TUBES/DRAINS - PIV x2 DVT PROPHYLAXIS - Held s/p TNK I have personally spent 30 minutes of critical care time in the direct management of this patient. This is a life/limb threatening event. This includes time spent evaluating patient, direct bedside care, chart review, placing orders, interpretation of diagnostic studies, discussion with consultants, patient, and family members, as well as other required patient management activities. This time is exclusive of all separately billable procedures, and teaching time and separate from and in addition to any other critical care service time. Thank you for allowing us to participate in the care of this patient. Please refer to my attending physician's documentation for any further recommendations. History of Present Illness Reason for Consultation: Stroke-like symptoms s/p TNK Requesting Physician: Balwinder Attending Physician: Lois Britt, DO History of Present Illness Mr. Mehran Pierson is a pleasant 84YOM with a history of hypertension, hyperlipidemia, 1st degree AVB, gout, Duncan's palsy, bladder cancer s/p TURPT and BPH who presented to [facility] ED from home the evening of 05/01/2024 due to approximately 1 hour of left arm weakness. Per report, patient was watching TV when he noticed he could not move his left arm. Patient hemodynamically stable on arrival to ED. Mildly bradycardic which appears to be his baseline. Exam revealed L arm weakness with associated drift, ataxia, and L facial droop. CTA n egative for LVO. Does not moderate bilateral carotid stenosis. Patient received TNK after consultation with telestroke neurologist at 1956. Less than 1 hour later the patient's strength returns and facial droop resolved. NIHSS 1. Lab work wholly unremarkable. He is admitted to ICU for continuation of care. Patient seen in ICU 104. He is AAOx3. GCS 15. No current complaints. Specifically denies headache, nausea, visual disturbances, dizziness, dysphagia, chest pain, dyspnea, abdominal pain, numbness/paresthesias. Allergies Allergy/AdvReac Type Severity Reaction Status Date / Time Penicillins Allergy Mild HIVES, RASH Verified 04/10/24 08:27 ciprofloxacin AdvReac BLLE Verified 04/10/24 08:27 edema, pain and tingling Home Medications Medication Instructions Recorded Confirmed Type ascorbic acid (vitamin C) 1,000 mg 1 tab PO QAM ##0 10/28/17 04/10/24 History tablet (Vitamin C) vitamin E 268 mg (400 unit) capsule 1 dose PO QAM ##0 10/28/17 04/10/24 History multivitamin 1 tab PO QAM 09/04/18 04/10/24 History latanoprostene bunod 0.024 % eye 1 drp ophthalmic (eye) DAILY 02/13/21 04/10/24 History drops (Vyzulta) netarsudil 0.02 % eye drops 1 drp ophthalmic (eye) QPM 11/12/22 04/10/24 History (Rhopressa) oxybutynin chloride 5 mg tablet 5 mg PO Q8H PRN bladder spasms #30 05/31/23 04/10/24 Rx tabs tamsulosin 0.4 mg capsule 0.4 mg PO DAILY #90 caps 07/17/23 04/10/24 Rx lisinopril 10 mg tablet 10 mg PO QAM #90 tabs 03/09/24 04/10/24 Rx Patient History Medical History Pre-syncope Bladder cancer recently dx History of nephrolithiasis Skin cancer Glaucoma Gout hx Osteoarthritis 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 No problems noted. Other No pertinent family history Denies family history of Ovarian cancer Prostate cancer Myocardial infarction Breast cancer Colorectal cancer Social History Smoking Status: Never smoker Second Hand Exposure: No; Do You Dip or Chew Tobacco: No; Hx Alcohol Use: Yes Alcohol type: beer Alcohol Intake Frequency: 2-4 x/Month Hx Substance Use: No Preferred Language: Malian Communication Ability: Effective Visual Impairment: No Limitations Hearing Ability: Normal Sql Server Dba Developer Required: No Beliefs That Will Affect Care: None marital status: Current Living Situation: Spouse current occupational status: employed and retired 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, 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 How many Children do You have: 1 How many Children do You have Comment: SON Feels Safe at Home: Yes Safety Concerns: Feels Safe At This Time Childhood Exposure to Second-Hand Smoke: Yes Diet: regular caffeine: Yes during the past year weight has: remained stable Dental Care, Regularly: Yes Physical Activity Frequency: 5-6 Times per Week Seatbelt Use: always Sunscreen Use: Yes Assistive Devices: Glasses Assistive Devices Comment: reading glasses, partial plate Review of Systems Review of Systems: All systems reviewed & are unremarkable except as noted in HPI & below Physical Exam Constitutional: WD/WN, vitals as above Eyes: PERRL, conjunctivae normal, anicteric sclerae ENMT: external ear and nose normal, oropharynx normal Neck: trachea midline, no thyromegaly Respiratory: normal respiratory effort, lungs clear to auscultation Cardiovascular: Rate/Rhythm: regular rate, regular rhythm and + bradycardic Heart Sounds: no murmur Gastrointestinal (Abdomen): normal bowel sounds, soft, nontender, no hepatosplenomegaly Skin: no rashes, warm and dry Neurologic: moves all extremities; no focal motor deficits Speech / Cognition: normal speech Motor/Sensory: no pronator drift and no sensory deficit Cranial Nerves: PERRL, tongue midline and able to elevate shoulders bilaterally Coordination: normal [id number] test Results & Data Results & Data Vital Signs (Past 12 Hours) Vital Signs Temp Pulse Pulse Resp BP BP Pulse Ox 05/01/24 20:59 36.8 C 57 L 16 123/82 95 05/01/24 20:42 36.8 C 61 18 134/83 96 05/01/24 20:26 36.8 C 59 L 16 130/78 96 05/01/24 20:11 36.8 C 62 25 H 127/79 95 05/01/24 19:30 67 15 159/90 H 96 05/01/24 19:29 72 05/01/24 19:17 36.4 C L 72 20 148/83 H 96 O2 Del Method 05/01/24 20:59 05/01/24 20:42 Room Air 05/01/24 20:26 Room Air 05/01/24 20:11 Room Air 05/01/24 19:30 Room Air 05/01/24 19:29 05/01/24 19:17 Room Air Laboratory Results Reviewed. Diagnostic Findings Reviewed. Medications Administered See MAR Coding Level of Care Code 55484 CRITICAL CARE 1ST 30-74M Diagnoses Stroke-like symptoms R29.90 Acute CVA (cerebrovascular accident) I63.9 Time Spent (min) 30
--- NOTE | 2024-05-01 23:48 | XRay Report ---
Exam(s): XR CXR 1 VIEW EXAM: XR Chest, 1 View CLINICAL HISTORY: Reason for exam: neuro deficit, acute stroke suspected. TECHNIQUE: Frontal view of the chest. COMPARISON: 02/10/2021 FINDINGS: Lungs: No consolidation. No overt edema. Pleural space: No pleural effusion. No pneumothorax. Heart: Unremarkable. No cardiomegaly. IMPRESSION: No acute cardiopulmonary abnormality. Electronically signed by: Jhony Martino MD 05/01/24 23:47 PM
--- NOTE | 2024-05-01 23:54 | Magnetic Resonance Report ---
Exam(s): MRI HEAD Without Contrast EXAM: MR Head Without Intravenous Contrast CLINICAL HISTORY: Reason for exam: Stroke-like symptoms s/p TNK. TECHNIQUE: Magnetic resonance images of the head/brain without intravenous contrast in multiple planes. COMPARISON: No relevant prior studies available. FINDINGS: Brain: Small amount of restricted diffusion along the cortex of the posterior right frontal lobe. No mass-effect. No hemorrhage. Global parenchymal atrophy. Ventricles: Unremarkable. No ventriculomegaly. Bones/joints: Unremarkable. No acute fracture. Sinuses: Fluid in the right maxillary sinus. Left maxillary sinus mucosal thickening. Mastoid air cells: Unremarkable as visualized. No mastoid effusion. Orbits: Unremarkable as visualized. IMPRESSION: Small amount of restricted diffusion along the cortex of the posterior right frontal lobe consistent with acute infarct.. Electronically signed by: Jhony Martino MD 05/01/24 23:53 PM
[2024-05-02 05:14] LABS: Basophils # (auto) 0.04 K/uL (0.00-0.20); Basophils % (auto) 0.6 %; Eosinophils # (auto) 0.25 K/uL (0.00-0.50); Eosinophils % (auto) 3.6 %; Hematocrit (blood only) 42.9 % (42.0-52.0); Hemoglobin 14.7 g/dl (14.0-18.0); Immature Granulocytes # (auto) 0.02 K/uL (0.01-0.20); Immature Granulocytes % (auto) 0.3 %; Lymphocytes # (auto) 2.32 K/uL (1.20-3.40); Lymphocytes % (auto) 33.2 %; Mean Corpuscular Hemoglobin 32.2 pg (25.0-34.0); Mean Corpuscular Hgb Conc 34.3 g/dL (32.0-36.0); Mean Corpuscular Volume 93.9 fL (80.0-100.0); Mean Platelet Volume 9.8 fL (9.4-12.4); Monocytes # (auto) 0.44 K/uL (0.11-0.59); Monocytes % (auto) 6.3 %; Neutrophils # (auto) 3.91 K/uL (1.40-6.50); Platelet Count 121 K/uL (130-400); RDW Coefficient of Variation 13.1 % (11.5-14.5); RDW Standard Deviation 44.7 fL (36.4-46.3); Red Blood Count 4.57 M/uL (4.70-6.10); White Blood Count 6.98 K/ul (4.8-10.8)
[2024-05-02 05:38] LABS: BUN Creatinine Ratio 17.3 (10-20); Calcium 8.8 mg/dl (8.6-10.3); Chol HDL Ratio 4.7 (0-5); Creatinine Clr Calc Pharmacy 64.7 ml/min
[2024-05-02] MEDS: ICU ELECTROLYTE REPLACEMENT PROTOCOL SCH (05:51)
--- NOTE | 2024-05-02 07:19 | Hospitalist Progress Note ---
Date of Service May 02, 2024 Assessment & Plan (1) Acute CVA (cerebrovascular accident): Plan: 84 y/o right handed male with history of HTN on Lisinopril presenting with acute onset of LUE numbness and weakness that started at 18:30. Patient presented as a CODE STROKE - NIHSS = 3 with limb ataxia present in LUE. Given Tenecteplase 25mg IV at 19:56. Admitted to the ICU for monitoring after TNKase administration. HbA1c 5.8. allow permissive HTN, treat IV Labetalol PRN SBP > 180 DBP > [address] Head ordered for 24H after TNKase - 20:40 ECHO pending start moderate intensity statin - rosuvastatin 20 mg neuro consult - clopidogrel 75 mg starting 05/03 PT/OT (2) Bladder cancer: Plan: Follows with urology. Had cystoscopy in January - cytology without signs of cancer. Repeat cystoscopy in 6 months. Plan HTN - continue Lisinopril BPH - patient believes his Flomax was stopped for some reason, but cannot remember why. Chart review does not discuss discontinuation. Recommend discuss with urology Code status: full DVT ppx: SCDs, chemo ppx contraindicated FENGI: heart healthy Dispo: ICU for 24 hours after TNKase, anticipate d/c home with outpatient f/u Admission and Anticipated Discharge Date Admission Date: May 01, 2024 Supervising Physician Co-Signing Physician Notes Attending attestation Pt seen and examined in concert with Dr. Garcia. In agreement with the documented findings as noted in the resident documentation with any exceptions or additions as noted here. Resting comfortably in bed without complaint of pain or paresthesias. Ongoing left sided upper extremity weakness reported on inquiry, but improving. On examination, S1/S2 nl no MCG. CTAB. Abd NT/ND BS+ve. mild left facial droop noted, LUE 4/5 on primary operator, flexion at elbow. CVA s/p TPA - neuro, ICU consult - permissive HTN. Follow up echocardiogram. Start rosuvastatin and clopidogrel as noted. PT/OT pending. Else see resident documentation as noted. Subjective Patient doing well. No further deficits. No CP or SOB. Overall feeling fine. Tolerating PO. Review of Systems 2 Review of Systems: See HPI Physical Exam 2 Physical Exam: Gen: well appearing patient in NAD HEENT: AT NC MMM Resp: CTAB no wheezing increased work of breathing CV: RRR no m/r/g clinically well perfused Abd: soft, non-tender, non-distended MSK: no obvious deformities Skin: no rashes or bruising Neuro: alert and oriented no focal deficits noted Psych: appropriate mood and affect Results & Data Results & Data Laboratory Results 05/02/24 04:46 05/02/24 04:46 Diagnostic Findings Chest X-Ray 05/01/24 19:25 FINDINGS: Lungs: No consolidation. No overt edema. Pleural space: No pleural effusion. No pneumothorax. Heart: Unremarkable. No cardiomegaly. IMPRESSION: No acute cardiopulmonary abnormality. Head CT 05/01/24 19:25 FINDINGS: Appropriate parenchymal volume is noted. Trevizo-white differentiation is preserved. No edema or midline shift. Partial calcification of the falx. No intra-axial or extra-axial hemorrhage. Ventricles are normal in size and configuration. Brainstem and cerebellum have a normal appearance. Calvarium unremarkable. Paranasal sinuses and mastoid air cells are well-pneumatized. Globes are intact. No retrobulbar abnormality. IMPRESSION: No CT evidence of an acute intracranial abnormality. Head CTA 05/01/24 19:25 FINDINGS: Dental amalgam creates significant beam hardening artifact. The vertebral arteries form the basilar artery at the skull base. [place] is patent. No thrombus or hemodynamically significant stenosis. No aneurysmal dilatation or bravo aneurysm. Mild atherosclerotic disease present in the No enhancing mass in the brain. Mild bilateral maxillary sinus mucosal thickening. IMPRESSION: No CTA evidence of an acute vascular abnormality. Neck CTA 05/01/24 19:25 FINDINGS: A left-sided aortic arch is present. The right subclavian artery originates from the undersurface of the aortic arch, variant anatomy. Right: Moderate atherosclerotic disease present in the proximal internal carotid artery with approximately 50% stenosis. Carotid bulb unremarkable. The right internal carotid artery is normal in course and enters the petrous portion of the skull base normally. Left: Moderate atherosclerotic disease is present in the proximal internal carotid artery of 50% stenosis. The carotid bulb is unremarkable. The left internal carotid artery enters the petrous portion of the skull base normally. Vertebral arteries are patent. Left vertebral artery is dominant. Both vertebral arteries contribute to the basilar artery. IMPRESSION: Bilateral proximal internal carotid artery atherosclerosis with approximately 50% stenosis and no acute abnormality. Brain MRI 05/01/24 21:05 FINDINGS: Brain: Small amount of restricted diffusion along the cortex of the posterior right frontal lobe. No mass-effect. No hemorrhage. Global parenchymal atrophy. Ventricles: Unremarkable. No ventriculomegaly. Bones/joints: Unremarkable. No acute fracture. Sinuses: Fluid in the right maxillary sinus. Left maxillary sinus mucosal thickening. Mastoid air cells: Unremarkable as visualized. No mastoid effusion. Orbits: Unremarkable as visualized. IMPRESSION: Small amount of restricted diffusion along the cortex of the posterior right frontal lobe consistent with acute infarct. Resident Activity Tracking Resident Involvement: Resident Care Provided Care Provided: Adult [facility] (2) Bladder cancer Bladder location: unspecified site Qualified Code(s): C67.9 - Malignant neoplasm of bladder, unspecified
[2024-05-02] MEDS ORDERED: ICU Protocol for HYPERglycemia SCH (07:30)
[2024-05-02] MEDS: MULTIVITAMIN TAB PO SCH (08:37)
[2024-05-02] MEDS: TAMSULOSIN HCL 0.4 MG CAP PO SCH (08:37)
[2024-05-02] MEDS: lisinopril 10 MG TAB PO SCH (08:37)
[2024-05-02 09:42] LABS: Estimated Average Glucose 120 mg/dl; Hemoglobin A1C 5.8 % (4.5-5.6)
--- NOTE | 2024-05-02 10:14 | Neurology Consultation ---
Date of Consultation May 02, 2024 Assessment & Plan (1) Acute CVA (cerebrovascular accident): (2) Acute left hemiparesis: (3) Carotid stenosis, bilateral: (4) Benign essential hypertension: Plan This patient suffered a very small right posterior frontal acute stroke near the periphery (around a sulcus) resulting in some left hemiparesis, arm greater than face and leg. He received TNK which gave him a rapid improvement and he is left today with minimal weakness in the left hand and left corner of the mouth (borderline). He has no other focal neurologic deficits, meningeal signs, or encephalopathy. Etiology of the stroke is likely ischemic. Echocardiogram is pending and he has no cardiac history. He has no obvious cardiac dysrhythmia such as atrial fibrillation. MRI shows the very small stroke and he has mild old small vessel ischemia The patient has moderate stenosis of the proximal internal carotid arteries bilaterally (about 50%). Patient has stroke risk factors including hypertension and advanced age Recommendations: 1. Awaiting echocardiogram results 2. 24 hours after TNK (around 1999 this evening) patient gets a repeat CT scan of the head 3. Given his advanced age and lipid parameters he is not a high-dose statin candidate, but I would initiate a low to medium dose. Agree with rosuvastatin 20 mg 4. Control blood pressure as you are doing aiming for a mean arterial pressure of 95-100. 5. Increase activity after 24 hours and consider Physical and Occupational Therapy consults today. 6. After 24 hours initiate clopidogrel 75 mg daily for stroke prevention Overall, I spent a total of 100 minutes with this case including review of records, review of CT and MRI films, direct evaluation the patient at bedside, report generation, and discussion of the case with the patient and RN at bedside, and Dr. Garcia, including differential diagnosis and treatment options. History of Present Illness Reason for Consultation: Patient is an 84-year-old, who was asked to see at the request of Dr. Britt, for neurologic consultation regarding stroke. Requesting Physician: Lois Britt DO Attending Physician: Temo Arvizu MD History of Present Illness This patient has a history of bladder cancer postsurgery, BPH, nephrolithiasis, and hypertension controlled on lisinopril. He is in his usual state of health on May 01. In the morning he was chipping ice off the driveway and walks. In the afternoon, he rested in his recliner was doing very well. Sometime between 6 and he had the sudden onset of weakness of the left arm. He could not lift it off the ground and was very clumsy unable to grasp or pick things up. There may be some dysesthesias but it was not frankly numb and there was no pain. He did not think his face was involved but his told him he had some left facial droop. He felt that his leg was not involved with any pain, weakness, or numbness. He had no speech issues, no new vision problems, or cognitive issues. He was driven by his family to the emergency room "right away". He arrived May 01 at 191 with a temperature of 36.4, pulse 72 and regular, respiratory rate 20, blood pressure 148/83, and O2 saturation 96%. He arrived approximately 1 hour after the onset of symptoms. NIH stroke scale was 3 (1 point each for weakness in the face, arm, and leg on the left). CBC and CHEM/liver profile were unremarkable. CT scan of the head showed no acute changes. CT angiography of the head was unremarkable with no vascular stenoses or anomalies. CT angiography of the neck revealed bilateral proximal internal carotid artery stenosis (approximately 50%). The patient was assessed by telestroke and he was given TNK at 1956 (door to needle time 39 minutes). The patient relates that after the TNK was infused, he immediately felt better in the left upper extremity. MRI of the brain showed a very small area of restricted diffusion in the right posterior frontal cortex, consistent with acute. There was moderate generalized atrophy and mild old small vessel ischemic disease only. I reviewed these films. Today he feels back to baseline with no weakness of his face, arm, or leg, no numbness or dysesthesias, pain or headache, and no speech issues. CBC and CHEM profile this morning were unremarkable. Triglycerides were 141 and total cholesterol 189. Blood pressure was 123/101 earlier today but currently is 142/90. In between he had a reading of 122/73. He is in normal sinus rhythm and 60s. Nursing reports no new issues. Allergies Allergy/AdvReac Type Severity Reaction Status Date / Time Penicillins Allergy Mild HIVES, RASH Verified 04/10/24 08:27 ciprofloxacin AdvReac BLLE Verified 04/10/24 08:27 edema, pain and tingling Home Medications Medication Instructions Recorded Confirmed Type ascorbic acid (vitamin C) 1,000 mg 1 tab PO QAM ##0 10/28/17 04/10/24 History tablet (Vitamin C) vitamin E 268 mg (400 unit) capsule 1 dose PO QAM ##0 10/28/17 04/10/24 History multivitamin 1 tab PO QAM 09/04/18 04/10/24 History latanoprostene bunod 0.024 % eye 1 drp ophthalmic (eye) DAILY 02/13/21 04/10/24 History drops (Vyzulta) netarsudil 0.02 % eye drops 1 drp ophthalmic (eye) QPM 11/12/22 04/10/24 History (Rhopressa) oxybutynin chloride 5 mg tablet 5 mg PO Q8H PRN bladder spasms #30 05/31/23 04/10/24 Rx tabs tamsulosin 0.4 mg capsule 0.4 mg PO DAILY #90 caps 07/17/23 04/10/24 Rx lisinopril 10 mg tablet 10 mg PO QAM #90 tabs 03/09/24 04/10/24 Rx Patient History Medical History Pre-syncope Bladder cancer recently dx History of nephrolithiasis Skin cancer Glaucoma Gout hx Osteoarthritis 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 No problems noted. Other No pertinent family history Denies family history of Ovarian cancer Prostate cancer Myocardial infarction Breast cancer Colorectal cancer Social History Smoking Status: Never smoker Second Hand Exposure: No; Do You Dip or Chew Tobacco: No; Hx Alcohol Use: Yes Alcohol type: beer Alcohol Intake Frequency: 2-4 x/Month Hx Substance Use: No Preferred Language: Dominican Communication Ability: Effective Visual Impairment: No Limitations Hearing Ability: Normal Taker Off Drying Kiln Required: No Beliefs That Will Affect Care: None marital status: Current Living Situation: Spouse current occupational status: employed and retired 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, 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 How many Children do You have: 1 How many Children do You have Comment: SON Feels Safe at Home: Yes Childhood Exposure to Second-Hand Smoke: Yes Diet: regular caffeine: Yes during the past year weight has: remained stable Dental Care, Regularly: Yes Physical Activity Frequency: 5-6 Times per Week Seatbelt Use: always Sunscreen Use: Yes Assistive Devices: Glasses Review of Systems Constitutional: no fever, no fatigue and no weakness Eyes: no diplopia, no eye pain and no worsening vision Ear, Nose, Mouth, Throat: no ear pain, no tinnitus, no hearing loss, no dizziness, no snoring, no hoarseness and no dysphagia Respiratory: no cough and no dyspnea Cardiovascular: no chest pain, no palpitations and no lightheadedness Gastrointestinal: no abdominal pain, no nausea and no vomiting Musculoskeletal: no back pain, no neck pain, no radicular pain, no joint pain and no myalgia Integumentary: no rash and no lesions Neurologic: no gait abnormality, no localized weakness, no generalized weakness, no tingling, no numbness, no tremor(s), no abnormal movements, no headache(s), no abnormal speech, no confusion and no memory loss Psychiatric: no depression, no irritability, no anxiety, no difficulty concentrating, no confusion and no hallucinations Endocrine: no fatigue and no flushing Hematologic / Lymphatic: no easy bleeding and no easy bruising Allergy / Immunological: no urticaria and no problem reported Exam (Neuro) Physical Exam: The patient is right-handed. The patient is awake, alert, and attentive. Speech is normal without any aphasia or dysarthria. Mentation and thought processes are intact, with full orientation and normal fund of knowledge. Mood and affect are normal and appropriate. Appearance and grooming are normal. Short and long-term memory are intact to conversation. The discs are sharp with positive venous pulsations bilaterally. There are no exudates, hemorrhages, or blood vessel changes seen. Pupils are 4 mm bilaterally and reactive to light. Extraocular eye muscles are intact without nystagmus. Visual acuity and visual sánchez seem normal grossly to confrontation. There are no deficits to sensation in the face in all 3 distributions of the fifth cranial nerve bilaterally. Corneal reflexes are positive bilaterally. Facial strength is normal bilaterally however there is a slight asymmetry with movement at the corner of the mouth on the left compared to the right. He can hold air in his cheeks bilaterally and he has no upper 7th cranial nerve weakness. Hearing seems intact grossly to voice and finger rub bilaterally. Palate moves well without asymmetry. There is normal sternocleidomastoid and trapezius strength bilaterally. Tongue is midline with good strength bilaterally. Neck has a full range of motion without discomfort. There are no cervical bruits bilaterally. There are no cranial or ocular bruits. Heart is without murmur. There is a regular rhythm and rate. Cervical, thoracic, and lumbar spine are nontender to palpation. Gait was not tested but stance sitting up in bed is good. With outstretched arms there is no drift. There are no resting, postural, or action tremors. There is no ataxia with finger to nose testing. There is good facility in the hands. No other abnormal involuntary movements are noted. Motor strength is 5/5 diffusely in the arms bilaterally including deltoids, biceps, triceps, brachioradialis, and wrist flexors and extensors. There is slight weakness (4+/5) in the left credit checker and intrinsics compared to the right which is 5/5. Motor strength is 5/5 diffusely in the legs bilaterally including hip flexors, quadriceps, hamstrings, gastrocnemius, tibialis anterior, tibialis posterior, and Peroneii muscles bilaterally. Toe extensors are normal and there is good bulk in the extensor digitorum brevis muscles bilaterally. The limbs have good tone without rigidity or spasticity. There is no atrophy noted in the muscles. Muscle bulk is normal, there is no tenderness to palpation, no myotonia to percussion, and no fasciculations seen. Sensory examination is intact to touch and pin throughout all 4 limbs diffusely. Reflexes are 1/4 in the biceps, triceps, brachioradialis, and quadriceps tendons bilaterally. Achilles tendon reflexes are absent bilaterally. Toes are downgoing with plantar stimulation bilaterally. Peripheral pulses are present and of normal quality distally in all 4 limbs. There is no peripheral edema noted in the limbs. Results & Data Vital Signs (Past 12 Hours) Vital Signs Temp Pulse Pulse Resp BP Pulse Ox O2 Del Method 05/02/24 08:00 61 05/02/24 07:56 37.1 C 60 18 142/90 H 96 Room Air 05/02/24 06:56 36.9 C 63 16 123/101 H 98 Room Air 05/02/24 05:56 37 C 50 L 16 111/68 96 Room Air 05/02/24 04:56 36.8 C 57 L 16 129/78 96 Room Air 05/02/24 03:56 36.8 C 51 L 16 133/82 97 Room Air 05/02/24 03:26 36.8 C 53 L 16 137/83 98 Room Air 05/02/24 02:56 36.9 C 48 L 16 110/62 98 Room Air 05/02/24 02:29 36.8 C 47 L 16 109/65 96 Room Air 05/02/24 01:56 36.8 C 48 L 16 108/64 95 Room Air 05/02/24 01:26 36.8 C 50 L 14 103/67 96 Room Air 05/02/24 00:56 36.9 C 48 L 14 117/71 96 Room Air 05/02/24 00:26 36.8 C 52 L 16 140/76 95 Room Air 05/01/24 23:56 36.9 C 53 L 16 132/81 97 Room Air 05/01/24 23:26 36.8 C 52 L 16 126/73 98 Room Air 05/01/24 22:56 36.8 C 52 L 16 129/70 96 Room Air 05/01/24 22:26 36.8 C 50 L 16 123/74 96 Room Air 05/01/24 21:56 36.9 C 54 L 16 126/83 96 Room Air PG Care Time/CCT Total # of Minutes Spent Total Time Spent with Patient: Total time spent is greater than 50% in coordination of care (as documented) at patient's floor/unit and/or counseling patient: Coding Level of Care Code 77551 INT INP/OBS CARE 375MIN Diagnoses Acute CVA (cerebrovascular accident) I63.9 Acute left hemiparesis G81.94 Carotid stenosis, bilateral I65.23 Benign essential hypertension I10 Time Spent (min) 100
--- NOTE | 2024-05-02 11:01 | Critical Care Progress Note ---
Date of Service May 02, 2024 Assessment & Plan (1) Stroke-like symptoms: (2) Acute CVA (cerebrovascular accident): Plan Reason Critically Ill: CVA Neuro - [facility] ICU: Negative RASS GOAL 0 CTA shows moderate carotid stenosis, no LVO Q1H neurologic checks per protocol Symptoms resolved s/p TNK MRI with small amount of restricted diffusion along the cortex of the posterior right frontal lobe consistent with acute infarct Repeat CTH at 24 hours post-TNK or sooner if neurologic change Lipid panel, A1c pending BP < 180/105, Hydralazine PRN. Avoid BB Cardiac - No acute conerns MAP goal > 65mmHg TTE with bubble study pending Continue ACEI in AM Respiratory - No acute concerns SpO2 > 92% IS/Flutter GI - Diet: Advance LINDSEY pending dysphagia screen SUP: N/A Bowel regimen: Miralax PRN RENAL/LYTES - Replete electrolytes as indicated Bladder scan PRN. Avoid straight cath x24 hours Maintain net even to net negative PATTERN MOLDER Tamsulosin ENDO - BG 140-180 per SCCM guidelines ISS if needed while inpatient HEME/ONC/OTHER - S/p TNK PATTERN MOLDER eyedrops ID - No acute concerns LINES/TUBES/DRAINS - PIV x2 DVT PROPHYLAXIS - Held s/p TNK Admission and Anticipated Discharge Date Admission Date: May 01, 2024 Subjective Left-sided arm weakness and numbness is resolved. Denies any headache, nausea, vomiting or chest pain. Review of Systems Review of Systems: All systems reviewed & are unremarkable except as noted in HPI & below Physical Exam Constitutional: WD/WN, vitals as above Eyes: PERRL, conjunctivae normal, anicteric sclerae ENMT: external ear and nose normal, oropharynx normal Neck: trachea midline, no thyromegaly Respiratory: normal respiratory effort, lungs clear to auscultation Cardiovascular: Rate/Rhythm: regular rate, regular rhythm and + bradycardic Heart Sounds: no murmur Gastrointestinal (Abdomen): normal bowel sounds, soft, nontender, no hepatosplenomegaly Skin: no rashes, warm and dry Neurologic: moves all extremities; no focal motor deficits Speech / Cognition: normal speech Motor/Sensory: no pronator drift and no sensory deficit Cranial Nerves: PERRL, tongue midline and able to elevate shoulders bilaterally Coordination: normal [id number] test Results & Data Results & Data Vital Signs (Past 12 Hours) Vital Signs Temp Pulse Pulse Resp BP Pulse Ox O2 Del Method 05/02/24 09:56 37.1 C 62 16 117/71 95 Room Air 05/02/24 08:56 37.1 C 63 18 125/76 97 Room Air 05/02/24 08:00 61 05/02/24 07:56 37.1 C 60 18 142/90 H 96 Room Air 05/02/24 06:56 36.9 C 63 16 123/101 H 98 Room Air 05/02/24 05:56 37 C 50 L 16 111/68 96 Room Air 05/02/24 04:56 36.8 C 57 L 16 129/78 96 Room Air 05/02/24 03:56 36.8 C 51 L 16 133/82 97 Room Air 05/02/24 03:26 36.8 C 53 L 16 137/83 98 Room Air 05/02/24 02:56 36.9 C 48 L 16 110/62 98 Room Air 05/02/24 02:29 36.8 C 47 L 16 109/65 96 Room Air 05/02/24 01:56 36.8 C 48 L 16 108/64 95 Room Air 05/02/24 01:26 36.8 C 50 L 14 103/67 96 Room Air 05/02/24 00:56 36.9 C 48 L 14 117/71 96 Room Air 05/02/24 00:26 36.8 C 52 L 16 140/76 95 Room Air 05/01/24 23:56 36.9 C 53 L 16 132/81 97 Room Air 05/01/24 23:26 36.8 C 52 L 16 126/73 98 Room Air Coding Level of Care Code 32687 SUB INP/OBS CARE 04/18MIN Diagnoses Stroke-like symptoms R29.90 Acute CVA (cerebrovascular accident) I63.9
[2024-05-02] MEDS: ROSUVASTATIN CALCIUM 20 MG TAB PO SCH (11:44)
--- NOTE | 2024-05-02 14:32 | Pharmacy Report ---
- Date of Service May 02, 2024 - Pharmacy CVA/TIA Medication Review Medications to Prevent Stroke handout has been added to the patients discharge packet. Antiplatelet(s) * Plavix 75mg PO daily (initiate after 24 hours) Cholesterol * High intensity statin: rosuvastatin 20 mg daily DVT Prophylaxis * SCD knee Therapeutic Anticoagulation * No history of Afib/Aflutter noted * Type 2 Diabetes * Patient does not have T2DM, HbA1c 5.8% (05/01/24)
--- NOTE | 2024-05-02 22:03 | XCELERA ---
[id number]
--- NOTE | 2024-05-02 23:39 | CT Scan Report ---
Exam(s): CT HEAD Without Contrast EXAM: CT Head Without Intravenous Contrast CLINICAL HISTORY: Post TPA/TNK 24 hour. TECHNIQUE: Axial computed tomography images of the head/brain without intravenous contrast. CTDI is 36.88 mGy and DLP is 625.8 mGy-cm. Automated exposure control was utilized for the study. A dose lowering technique was utilized adhering to the principles of ALARA. COMPARISON: CT head without contrast to 7 2024 1933 hrs.; MR head 9 hrs. FINDINGS: Brain: No intracranial hemorrhage. No significant mass-effect. The area of diffusion restriction involving the posterior right frontal lobe on the MRI examination is not clearly delineated. Mild prominence of the cerebral sulci, stable. No mass-effect or midline shift. No significant white matter disease. Ventricles: Unremarkable. No ventriculomegaly. Bones/joints: Unremarkable. No acute fracture. Soft tissues: Unremarkable. Sinuses: Mucosal thickening or fluid in the minimally included right maxillary sinus, stable. The paranasal sinuses are otherwise well aerated. Mastoid air cells: Unremarkable as visualized. No mastoid effusion. IMPRESSION: No intracranial hemorrhage. No significant alteration from the prior examination. Communications: Call Doctor Stroke Electronically signed by: Jamaal Obrien MD 05/02/24 23:38 PM
--- NOTE | 2024-05-02 23:43 | Communication Note ---
Date of Service: May 02, 2024 Patient remains stable. Neurologic status unchanged. 24 hour interval CTH is read as no acute changes including no intracranial hemorrhage. He is stable for down grade from ICU level of care. This will be communicated to primary team by me. Coding Level of Care Code None
[2024-05-03 05:11] LABS: Basophils # (auto) 0.02 K/uL (0.00-0.20); Basophils % (auto) 0.3 %; Eosinophils # (auto) 0.19 K/uL (0.00-0.50); Eosinophils % (auto) 2.5 %; Hematocrit (blood only) 42.7 % (42.0-52.0); Hemoglobin 14.6 g/dl (14.0-18.0); Immature Granulocytes # (auto) 0.01 K/uL (0.01-0.20); Immature Granulocytes % (auto) 0.1 %; Lymphocytes # (auto) 2.44 K/uL (1.20-3.40); Lymphocytes % (auto) 32.7 %; Mean Corpuscular Hemoglobin 31.5 pg (25.0-34.0); Mean Corpuscular Hgb Conc 34.2 g/dL (32.0-36.0); Mean Corpuscular Volume 92.2 fL (80.0-100.0); Monocytes # (auto) 0.57 K/uL (0.11-0.59); Monocytes % (auto) 7.6 %; Neutrophils # (auto) 4.23 K/uL (1.40-6.50); Neutrophils % (auto) 56.8 %; Platelet Count 130 K/uL (130-400); RDW Coefficient of Variation 13.2 % (11.5-14.5); Red Blood Count 4.63 M/uL (4.70-6.10); White Blood Count 7.46 K/ul (4.8-10.8)
[2024-05-03 05:25] LABS: BUN Creatinine Ratio 17.1 (10-20); Creatinine Clr Calc Pharmacy 64.1 ml/min; Phosphorus 2.7 mg/dl (2.5-4.9); Potassium 4.1 mmol/L (3.5-5.1)
--- NOTE | 2024-05-03 07:15 | Discharge Summary ---
Date of Service May 03, 2024 Admission HPI Per Admitting Provider Mehran Pierson is an 84yo right-hand dominant male with history of HTN presenting with LUE numbness/weakness. Patient had been in his usual state of health until this afternoon while he was siting and relaxing and developed acute onset LUE numbness/tingling and weakness at 18:30. He reports he was unable to strip picker his arm. No additional complaints. Specifically denies numbness/tingling of LLE, face, visual changes or speech issue. No report of fever, chills, chest pain, cough or shortness of breath. Patient presented as a CODE STROKE. He was administered Tenectplase 25mg at 19:56. He reports progressive improvement in his LUE numbness and weakness. Still not at baseline but improving. No additional complaints - no headache, visual changes. ER Course: Tenectplase 25mg IV Admission Exam Per Admitting Provider General: patient resting comfortably, NAD, non-toxic in appearance, AA&O x 4 Skin: warm, dry, intact, no rashes or lesions HEENT: NC/AT, PERRL, EOMI, anicteric sclera, conjunctiva without injection, external ear normal to inspection and nontender, nares patent, moist mucus membranes, dentition intact, no oropharyngeal lesions, neck supple, trachea midline, no LAD, no thyromegaly, no JVD Heart: +S1/S2, regular, no m/r/g Lungs: equal air entry bilaterally, no rales/rhonchi/wheezes Abd: +BS, soft, NT/ND, no masses/organomegaly/ascites Ext: warm, 2+ pulses in UE/LE bilaterally, no clubbing/cyanosis or edema Neuro: AA&O x 4, speech appropriate and fluent, no facial droop, CN II - XII grossly intact, sensation to light touch intact in UE/LE bilaterally, MS in LUE 4/5, RUE, RLL/LLL 5/5, mild dysmetria noted with finger to nose when using left hand, gait not assessed Principal Diagnosis CVA with residual left sided deficits Discharge Exam Gen: well appearing patient in NAD HEENT: AT NC MMM Resp: CTAB no wheezing increased work of breathing CV: RRR no m/r/g clinically well perfused Abd: non-distended MSK: no obvious deformities Skin: no rashes or bruising Neuro: alert and oriented no focal deficits noted, slightly decreased strength left side Psych: appropriate mood and affect Discharge Data Allergies Allergy/AdvReac Type Severity Reaction Status Date / Time Penicillins Allergy Mild HIVES, RASH Verified 04/10/24 08:27 ciprofloxacin AdvReac BLLE Verified 04/10/24 08:27 edema, pain and tingling Consultations 05/01/24 20:02 ED Decision to Admit Stat 05/01/24 21:05 Consult Neurology Routine 05/01/24 21:22 Consult [employer] Coating Equipment Tender Routine Consult Neurology Routine Ordered Studies Chest X-Ray 05/01/24 19:25 FINDINGS: Lungs: No consolidation. No overt edema. Pleural space: No pleural effusion. No pneumothorax. Heart: Unremarkable. No cardiomegaly. IMPRESSION: No acute cardiopulmonary abnormality. Head CT 05/01/24 19:25 FINDINGS: Appropriate parenchymal volume is noted. Trevizo-white differentiation is preserved. No edema or midline shift. Partial calcification of the falx. No intra-axial or extra-axial hemorrhage. Ventricles are normal in size and configuration. Brainstem and cerebellum have a normal appearance. Calvarium unremarkable. Paranasal sinuses and mastoid air cells are well-pneumatized. Globes are intact. No retrobulbar abnormality. IMPRESSION: No CT evidence of an acute intracranial abnormality. Head CTA 05/01/24 19:25 FINDINGS: Dental amalgam creates significant beam hardening artifact. The vertebral arteries form the basilar artery at the skull base. [place] of [place] is patent. No thrombus or hemodynamically significant stenosis. No aneurysmal dilatation or bravo aneurysm. Mild atherosclerotic disease present in the No enhancing mass in the brain. Mild bilateral maxillary sinus mucosal thickening. IMPRESSION: No CTA evidence of an acute vascular abnormality. Neck CTA 05/01/24 19:25 FINDINGS: A left-sided aortic arch is present. The right subclavian artery originates from the undersurface of the aortic arch, variant anatomy. Right: Moderate atherosclerotic disease present in the proximal internal carotid artery with approximately 50% stenosis. Carotid bulb unremarkable. The right internal carotid artery is normal in course and enters the petrous portion of the skull base normally. Left: Moderate atherosclerotic disease is present in the proximal internal carotid artery of 50% stenosis. The carotid bulb is unremarkable. The left internal carotid artery enters the petrous portion of the skull base normally. Vertebral arteries are patent. Left vertebral artery is dominant. Both vertebral arteries contribute to the basilar artery. IMPRESSION: Bilateral proximal internal carotid artery atherosclerosis with approximately 50% stenosis and no acute abnormality. Brain MRI 05/01/24 21:05 FINDINGS: Brain: Small amount of restricted diffusion along the cortex of the posterior right frontal lobe. No mass-effect. No hemorrhage. Global parenchymal atrophy. Ventricles: Unremarkable. No ventriculomegaly. Bones/joints: Unremarkable. No acute fracture. Sinuses: Fluid in the right maxillary sinus. Left maxillary sinus mucosal thickening. Mastoid air cells: Unremarkable as visualized. No mastoid effusion. Orbits: Unremarkable as visualized. IMPRESSION: Small amount of restricted diffusion along the cortex of the posterior right frontal lobe consistent with acute infarct. Head CT 05/02/24 20:40 FINDINGS: Brain: No intracranial hemorrhage. No significant mass-effect. The area of diffusion restriction involving the posterior right frontal lobe on the MRI examination is not clearly delineated. Mild prominence of the cerebral sulci, stable. No mass-effect or midline shift. No significant white matter disease. Ventricles: Unremarkable. No ventriculomegaly. Bones/joints: Unremarkable. No acute fracture. Soft tissues: Unremarkable. Sinuses: Mucosal thickening or fluid in the minimally included right maxillary sinus, stable. The paranasal sinuses are otherwise well aerated. Mastoid air cells: Unremarkable as visualized. No mastoid effusion. IMPRESSION: No intracranial hemorrhage. No significant alteration from the prior examination. Hospital Course (1) Acute CVA (cerebrovascular accident): 84 y/o right handed male with history of HTN on Lisinopril presenting with acute onset of LUE numbness and weakness that started at 18:30. Patient presented as a CODE STROKE - NIHSS = 3 with limb ataxia present in LUE. Given Tenecteplase 25mg IV at 19:56. Admitted to the ICU for monitoring after TNKase administration. Allowed for permissive hypertension s/p TNKase. CT Head stable at 24 hours after administration. HbA1c 5.8. ECHO without significant abnormalities - EF 65-70%, moderate concentric LVH, aortic sclerosis without significant stenosis. Continue home BP medications with lisinopril. Add antiplatelet agent, plavix, and moderate intensity statin, rosuvastatin. Neurology consulted during hospital stay - appreciate recs. PT/OT recommend acute rehab for intensive therapy. Did discuss risks/benefits. Patient declines. Is amenable to outpatient PT and using a walker. Scripts provided. Patient to return home with resources and f/u with PCP in the next 7-10 days. Strict return precautions given. (2) Bladder cancer: Follows with urology. Had cystoscopy in January - without signs of cancer. Repeat cystoscopy in 6 months. (3) BPH (benign prostatic hyperplasia): Patient believes his Flomax was stopped for some reason, but cannot remember why. Chart review does not discuss discontinuation. Recommend discuss with urology, Dr. Vargas. (4) Benign essential hypertension: HTN - continue Lisinopril Total Time Total Time Spent Total Time Spent (In Minutes): See attending attestation Discharge Plan Discharge Items Patient Disposition: Home - Self-Care Reason For Visit: CVA S/P TNK Discharge Diagnosis: CVA s/p TNKase Activity: Per Instructions section Non-emergency contact: Primary Care Provider and Certifier Call non-emergency contact if: your symptoms worsen, your temperature is above 101.5 and your wound has increased redness Follow-up/Referrals: Hafsa Hoffman MD [Primary Care Provider] - Diet: Heart Healthy Addtl Attending Provider Instructions: You were seen in the hospital for acute left sided deficits. You were found to have an ischemic stroke and treated with a clot buster called Mansi. Your symptoms improved significantly. There are still some noted deficits. We had PT and OT come work with you and they recommended an acute rehab facility for intensive rehabilitation. With shared decision making we have decided to continue with outpatient therapy and a walker for stability at home. If this plan does not end up working please reach out to your PCP about inpatient rehab. We started you on two new medications. Plavix 75 mg (clopidogrel) which is an anti-platelet medication and should help keep you from developing clots/platelets sticking together. We also started you on rosuvastatin 20 mg which will help to stabilize any cholesterol plaques that you have developed over your lifetime and lower the cholesterol levels in your blood. Please take these medications every day for the foreseeable future. It is important that you follow up with your PCP within the next 7-10 days. Pending Studies at Discharge: No Stand-Alone Forms: My Nutricate, Smoking Cessation Medications and DC Order Prescriptions: New clopidogrel 75 mg Tablet 75 mg PO QAM 30 Days Qty: 30 0RF rosuvastatin 20 mg Tablet 20 mg PO QAM 30 Days Qty: 30 0RF Continued vitamin E 400 unit Capsule 1 dose PO QAM Qty: 0 Rx Instructions: UNKNOWN DOSE ascorbic acid (vitamin C) [Vitamin C] 1,000 mg Tablet 1 tab PO QAM Qty: 0 oxybutynin chloride 5 mg tablet 5 mg PO Q8H PRN (Reason: bladder spasms) Qty: 30 0RF lisinopril 10 mg tablet 10 mg PO QAM Qty: 90 1RF Rx Instructions: TAKE 1 TABLET BY MOUTH ONCE DAILY. multivitamin tablet 1 tab PO QAM Rhopressa 0.02 % drops 1 drp ophthalmic (eye) QPM tamsulosin 0.4 mg capsule 0.4 mg PO DAILY Qty: 90 3RF Vyzulta 0.024 % Drops 1 drp OPHTHALMIC (EYE) DAILY Discharge Orders: Discharge Order (Routine); Ordered 05/03/24 Ordered By: Gertrudis Garcia Admission Data Admit Date/Time: 05/01/24 20:45 Attending Provider: Ratna Huerta Admit Provider: Lois Britt Primary Care Provider: Hafsa Hoffman Other Providers: Benny Aldridge; Lois Britt; Freddy Graff; Lily Shah; Aviva Baron; Isabel Morocho; Mikey Cox; Andry Lane; [facility] Other Interventions: Discharge Summary Assessment (RN) Last Done: 05/03/24 11:18 Supervising Physician Co-Signing Physician Notes I personally examined the patient and verified flood points of history and exam, discussed case, and agree with decision making and plan documented by Dr. Garcia. Reviewed consideration of inpatient rehabilitation with patient. He would feel more comfortable pursing outpatient physical therapy at this time and has had a good experience with physical therapy near his house in [place]. Patient seated comfortably in chair during exam, lungs clear b/l to auscultation, regular rate and rhythm, no acute distress, mild reduced quitline counselor strength LUE. Patient understanding of clopidogrel and rosuvastatin indications. He will follow-up with PCP and neurology. Resident Activity Tracking Resident Involvement: Resident Care Provided Care Provided: Adult [facility]
[2024-05-03 08:16] VITALS: BP 128/70; RESP 18; TEMP 99; O2SAT 95
[2024-05-03] MEDS: CLOPIDOGREL BISULFATE 75 MG TAB PO SCH (08:30)
[2024-05-03] MEDS ORDERED: STROKE PATIENT DISCHARGE STA (10:50)
[2024-05-03 11:23] VITALS: PULSE 78
--- NOTE | 2024-05-03 12:27 | Neurology Progress Note ---
Date of Service May 03, 2024 Assessment & Plan (1) Acute CVA (cerebrovascular accident): (2) Acute left hemiparesis: (3) Carotid stenosis, bilateral: (4) Benign essential hypertension: Plan This patient suffered a very small right posterior frontal acute stroke near the periphery (around a sulcus), May 01, resulting in some left hemiparesis, arm greater than face and leg. He received TNK which gave him a rapid improvement and he is left with minimal weakness in the left hand (and borderline left corner of the mouth weakness). He has no other focal neurologic deficits, meningeal signs, or encephalopathy. Etiology of the stroke is likely ischemic. Echocardiogram was and he has no cardiac history. He has no obvious cardiac dysrhythmia such as atrial fibrillation. MRI shows the very small stroke and he has mild old small vessel ischemia. His prognosis is very good. The patient has moderate stenosis of the proximal internal carotid arteries bilaterally (about 50%). Patient has stroke risk factors including hypertension and advanced age Recommendations: 1. Continue rosuvastatin 20 mg daily. He is not a high-dose statin candidate. 2. Control blood pressure as you are doing aiming for a mean arterial pressure of 95-100. 3. Increase activity as able. 4. Continue clopidogrel 75 mg each morning. 5. If desired, follow-up with neurology 2 to 3 weeks after discharge with neurology PA. Overall, I spent a total of 35 minutes with this case including review of records, review of CT films, direct evaluation the patient at bedside, report generation, and discussion of the case with the patient and RN at bedside, including differential diagnosis and treatment options. Admission and Anticipated Discharge Date Admission Date: May 01, 2024 Subjective Patient is feeling well, and essentially back to his baseline he believes (except for his left hand). Nursing reports no new issues or problems. He has no pain or headaches and his left hand weakness is about the same as yesterday. Echocardiogram was unremarkable/normal with no PFO. CBC and CHEM profile were unremarkable. Blood pressure is 128/70 and hemoglobin A1c is 5.8. Repeat CT scan of the head without contrast was unremarkable/same as previous Results & Data Vital Signs (Past 12 Hours) Vital Signs Temp Pulse Pulse Resp BP BP Pulse Ox 05/03/24 11:18 37.2 C 78 18 128/70 95 05/03/24 08:00 77 05/03/24 07:56 37.2 C 78 18 128/70 95 05/03/24 05:00 57 L 16 94 05/03/24 04:51 63 16 93 05/03/24 04:01 125/78 05/03/24 04:01 125/78 05/03/24 03:57 56 L 13 95 05/03/24 03:54 57 L 16 98 05/03/24 03:36 63 1 L 92 05/03/24 03:24 58 L 16 95 05/03/24 03:15 59 L 20 95 05/03/24 03:00 125/64 05/03/24 03:00 125/64 05/03/24 03:00 59 L 15 93 05/03/24 02:45 58 L 15 94 05/03/24 02:36 58 L 14 94 05/03/24 02:21 21 93 05/03/24 02:06 62 16 96 05/03/24 02:03 133/69 05/03/24 02:03 133/69 05/03/24 02:01 63/35 L 05/03/24 01:54 54 L 14 94 05/03/24 01:24 19 94 05/03/24 01:18 63 17 94 05/03/24 01:00 37 C 05/03/24 00:33 63 19 95 O2 Del Method 05/03/24 11:18 05/03/24 08:00 05/03/24 07:56 Room Air 05/03/24 05:00 05/03/24 04:51 05/03/24 04:01 05/03/24 04:01 05/03/24 03:57 05/03/24 03:54 05/03/24 03:36 05/03/24 03:24 05/03/24 03:15 05/03/24 03:00 05/03/24 03:00 05/03/24 03:00 05/03/24 02:45 05/03/24 02:36 05/03/24 02:21 05/03/24 02:06 05/03/24 02:03 05/03/24 02:03 05/03/24 02:01 05/03/24 01:54 05/03/24 01:24 05/03/24 01:18 05/03/24 01:00 05/03/24 00:33 Exam (Neuro) Physical Exam: He is awake and alert. Speech is without aphasia or dysarthria. Mood and affect seem normal and appropriate. Thought processes are intact with good memory to conversation Extraocular eye muscles are intact without nystagmus. There is no obvious facial droop. I appreciate less asymmetry at the corner of his mouth on the left when he smiles today, compared to yesterday. He has some clumsiness and weakness distally in the left upper extremity including graphic design specialist and intrinsic hand muscles. Proximally in the left upper extremity he is 5/5. The left leg is 5/5 as is the right side, diffusely both proximally and distally. Stance sitting up in bed is normal. Coordination is normal in the arms without tremor or ataxia. PG Care Time/CCT Total # of Minutes Spent Total Time Spent with Patient: Total time spent is greater than 50% in coordination of care (as documented) at patient's floor/unit and/or counseling patient: Coding Level of Care Code 79361 SUB INP/OBS CARE 2/35MIN Diagnoses Acute CVA (cerebrovascular accident) I63.9 Acute left hemiparesis G81.94 Carotid stenosis, bilateral I65.23 Benign essential hypertension I10 Time Spent (min) 35
--- NOTE | 2024-05-04 06:32 | Electrocardiogram Report ---
Test Reason : Blood Pressure : */* mmHG Vent. Rate : 61 BPM Atrial Rate : 61 BPM P-R Int : 252 ms QRS Dur : 94 ms QT Int : 442 ms P-R-T Axes : 68 -52 43 degrees QTcB Int : 444 ms Sinus rhythm with 1st degree A-V block Left anterior fascicular block Abnormal ECG When compared with ECG of 01-Nov-2017 12:08, IA interval has increased Confirmed by Ben Gonzalez ([id number]) on 05/04/2024 6:31:47 AM Referred By: REFERRED SELF Confirmed By: Ben Gonzalez
--- NOTE | 2024-05-04 10:42 | Pharmacy Report ---
Pharmacist Stroke Counseling - Date of Service May 04, 2024 - Scope: Pharmacy has been consulted to provide medication discharge counseling for this patient admitted with ischemic stroke as per the Pharmacist Discharge Counseling for Stroke Patients Protocol. - Medications on Discharge: Home Medications Medication Instructions Recorded Confirmed ascorbic acid (vitamin C) 1,000 mg 1 tab PO QAM ##0 10/28/17 04/10/24 tablet (Vitamin C) vitamin E 268 mg (400 unit) capsule 1 dose PO QAM ##0 10/28/17 04/10/24 multivitamin 1 tab PO QAM 09/04/18 04/10/24 latanoprostene bunod 0.024 % eye 1 drp ophthalmic (eye) DAILY 02/13/21 04/10/24 drops (Vyzulta) netarsudil 0.02 % eye drops 1 drp ophthalmic (eye) QPM 11/12/22 04/10/24 (Rhopressa) New Rx's Medication Instructions Recorded oxybutynin chloride 5 mg tablet 5 mg PO Q8H PRN bladder spasms #30 05/31/23 tabs tamsulosin 0.4 mg capsule 0.4 mg PO DAILY #90 caps 07/17/23 lisinopril 10 mg tablet 10 mg PO QAM #90 tabs 03/09/24 clopidogrel 75 mg tablet 75 mg PO QAM 30 days #30 tabs 05/03/24 rosuvastatin 20 mg tablet 20 mg PO QAM 30 days #30 tabs 05/03/24 - Action: The above medications, specifically ones for stroke treatment/prophylaxis, have been reviewed in detail with the patient and/or patient workforce services representative(s) prior to discharge. This includes indication, common adverse reactions, drug inte ractions, and medication administration. Medication counseling has been employed using the teach-back method to ensure understanding. - Outcome: The patient and/or patient workforce services representative(s) have demonstrated understanding of the medications. 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 No issues noted so far. Reviewed indications and side of effects of Plavix and Crestor. Mehran was able to verbalize back understanding. He questioned the duration of how long he will need to take these new medications, stated some people take them adjunct faculty for medical terminology and some people only take for a short time after a stroke. Follow-up with primary care provider regarding this. All questions answered. Thank you for allowing pharmacy to be involved in the care of this patient. Please call [phone] with any additional questions
== END 2024-05-03 14:34 | disposition home health service (06) | DRG 62 ==
LOC: ED 19:14 → SUATTDRO 20:45 → 1E 20:45